=== PATIENT | female | born 1995 | race Caucasian/White ===

== ENCOUNTER 2017-02-03 08:06 | Emergency (ER) | payer BC, OTHER ==
[2017-02-03 08:11] VITALS: RESP 16
[2017-02-03] MEDS ORDERED: SODIUM CHLORIDE 0.9% 1,000 ML IV ONE (08:23)
[2017-02-03] MEDS ORDERED: METOCLOPRAMIDE 5 MG/ML 2 ML VIAL IVP STA (08:23)
--- NOTE | 2017-02-03 08:34 | ED ---
Nausea/Vomiting/Diarrhea HPI - General Chief complaint: Nausea/Vomiting/Diarrhea Stated complaint: dehydrated, Time Seen by Provider: 02/03/17 08:12 Source: patient, RN notes reviewed Mode of arrival: ambulatory Limitations: no limitations - History of Present Illness Initial comments: Patient is a 21-year-old female, , presents to the emergency room for evaluation and nausea and vomiting. Patient states she is about 14 weeks . Patient states she follows up with Dr. Gruber. Patient states she has a confirmed IUP by ultrasound. Patient states she's been having terrible morning sickness since . Patient states she was at work today and continued to vomit. Patient states she still very nauseous. Patient states she thought she should be evaluated here. Patient denies abdominal pain. Patient denies vaginal bleeding. Patient has pain or burning during urination, trouble urinating or blood in urine. Patient denies flank pain. Patient denies fevers or chills. Patient denies chest pain or shortness of breath. Patient denies headache. Patient states she feels dizzy from constantly vomiting. - Related Data Home Medications Medication Instructions Recorded Confirmed FLUoxetine HCL [Fluoxetine HCl] 20 mg PO DAILY 02/06/15 02/11/15 Allergies Allergy/AdvReac Type Severity Reaction Status Date / Time sulfamethoxazole Allergy Unknown Verified 02/03/17 08:11 [From Bactrim] trimethoprim [From Bactrim] Allergy Unknown Verified 02/03/17 08:11 Review of Systems ROS Statement: Those systems with pertinent positive or pertinent negative responses have been documented in the HPI. ROS Other: All systems not noted in ROS Statement are negative. Past Medical History Past Medical History: Asthma Additional Past Medical History / Comment(s): low blood pressure History of Any Multi-Drug Resistant Organisms: MRSA Date of last positivie culture/infection: 2010 MDRO Source:: at waist line Past Surgical History: Ear Surgery Past Psychological History: Anxiety, Depression Smoking Status: Never smoker Past Alcohol Use History: None Reported Past Drug Use History: None Reported General Exam - General Exam Comments Initial Comments: Sitting in exam room, no acute distress. Limitations: no limitations General appearance: alert, in no apparent distress Head exam: Present: atraumatic, normocephalic, normal inspection Eye exam: Present: normal appearance ENT exam: Present: normal exam Neck exam: Present: normal inspection Respiratory exam: Present: normal lung sounds bilaterally. Absent: respiratory distress Cardiovascular Exam: Present: regular rate, normal rhythm, normal heart sounds GI/Abdominal exam: Present: soft, normal bowel sounds. Absent: distended, tenderness, guarding, rebound, rigid Extremities exam: Present: normal inspection Back exam: Present: normal inspection Neurological exam: Present: alert, oriented X3, CN II-XII intact, normal gait Psychiatric exam: Present: normal affect, normal mood Skin exam: Present: warm, dry, intact, normal color. Absent: rash Course Vital Signs 02/03/17 08:07 Temperature 97.3 F L Pulse Rate 97 Respiratory 16 Rate Blood Pressure 114/65 O2 Sat by Pulse 98 Oximetry Medical Decision Making - Medical Decision Making Patient's 21-year-old female, complaining of vomiting. Patient given fluids and Reglan states she's feeling better and would like to be discharged home. Return parameters discussed. Case discussed Dr. Gonzales. - Lab Data Result diagrams: 02/03/17 08:40 02/03/17 08:40 Lab Results 02/03/17 02/03/17 02/03/17 Range/Units 08:15 08:40 08:40 WBC 8.7 (3.8-10.6) k/uL RBC 4.24 (3.80-5.40) m/uL Hgb 12.9 (11.4-16.0) gm/dL Hct 36.3 (34.0-46.0) % MCV 85.6 (80.0-100.0) fL MCH 30.3 (25.0-35.0) pg MCHC 35.5 (31.0-37.0) g/dL RDW 13.1 (11.5-15.5) % Plt Count 217 (150-450) k/uL Neutrophils % 84 % Lymphocytes % 10 % Monocytes % 4 % Eosinophils % 1 % Basophils % 1 % Neutrophils # 7.4 (1.3-7.7) k/uL Lymphocytes # 0.9 L (1.0-4.8) k/uL Monocytes # 0.3 (0-1.0) k/uL Eosinophils # 0.1 (0-0.7) k/uL Basophils # 0.1 (0-0.2) k/uL Sodium 139 (137-145) mmol/L Potassium 3.9 (3.5-5.1) mmol/L Chloride 105 (98-107) mmol/L Carbon Dioxide 25 (22-30) mmol/L Anion Gap 9 mmol/L BUN 5 L (7-17) mg/dL Creatinine 0.59 (0.52-1.04) mg/dL Est GFR (MDRD) Af Amer >60 (>60 ml/min/1.73 sqM) Est GFR (MDRD) Non-Af >60 (>60 ml/min/1.73 sqM) Glucose 80 (74-99) mg/dL Calcium 9.4 (8.4-10.2) mg/dL Magnesium 1.7 (1.6-2.3) mg/dL Total Bilirubin 0.5 (0.2-1.3) mg/dL AST 37 H (14-36) U/L ALT 45 (9-52) U/L Alkaline Phosphatase 55 (38-126) U/L Total Protein 7.1 (6.3-8.2) g/dL Albumin 4.1 (3.5-5.0) g/dL Amylase 38 (30-110) U/L Lipase 46 (23-300) U/L Urine Color Yellow Urine Appearance Cloudy H (Clear) Urine pH 5.5 (5.0-8.0) Ur Specific Chapman 1.022 (1.001-1.035) Urine Protein Trace H (Negative) Urine Glucose (UA) Negative (Negative) Urine Ketones Negative (Negative) Urine Blood Negative (Negative) Urine Nitrite Negative (Negative) Urine Bilirubin Negative (Negative) Urine Urobilinogen 2.0 (<2.0) mg/dL Ur Leukocyte Esterase Trace H (Negative) Urine RBC 1 (0-5) /hpf Urine WBC 4 (0-5) /hpf Ur Squamous Epith Cells 4 (0-4) /hpf Urine Bacteria Moderate H (None) /hpf Urine Mucus Few H (None) /hpf Disposition Clinical Impression: Hyperemesis gravidarum Disposition: HOME SELF-CARE Condition: Good Instructions: Hyperemesis Gravidarum (ED) Additional Instructions: Please follow up with [facility] or primary care provider in 1-2 days. If any new symptom arises or symptoms worsen, return to ER as soon as possible. Referrals: Malika Vidal MD [Primary Care Provider] - 1-2 days Cyndie Gruber MD [STAFF PHYSICIAN] - 1-2 days Time of Disposition: 09:42
[2017-02-03 08:41] LABS: Appearance,Urine Cloudy (Clear); Bacteria,Urine Moderate /hpf; Bilirubin,Urine Negative (Negative); Glucose,Urine (UA) Negative (Negative); Ketones,Urine Negative (Negative); Leukocyte Esterase,Urine Trace (Negative); Mucus,Urine Few /hpf; Nitrite,Urine Negative (Negative); PH, Urine 5.5 (5.0-8.0); Particle Count 12465; Protein,Urine Trace (Negative); RBC,Urine 1 /hpf (0-5); Specific Gravity,Urine 1.022 (1.001-1.035); Squamous Epithelial Cell,Urine 4 /hpf (0-4); UA Billing (MACRO vs. MICRO) MICRO; WBC,Urine 4 /hpf (0-5)
[2017-02-03 08:58] LABS: Basophils # (A) 0.1 k/uL (0-0.2); Basophils % (A) 1 %; CH 30.4; CHCM 35.6; Eosinophils # (A) 0.1 k/uL (0-0.7); Eosinophils % (A) 1 %; HCT 36.3 % (34.0-46.0); HDW 2.55; HGB 12.9 gm/dL (11.4-16.0); Luc % (Auto) 1; Lymphocytes # (A) 0.9 k/uL (1.0-4.8); Lymphocytes % (A) 10 %; MCH 30.3 pg (25.0-35.0); MCHC 35.5 g/dL (31.0-37.0); MCV 85.6 fL (80.0-100.0); Mean Platelet Volume 8.1; Monocytes # (A) 0.3 k/uL (0-1.0); Monocytes % (A) 4 %; Neutrophils # (A) 7.4 k/uL (1.3-7.7); Neutrophils % (A) 84 %; RBC 4.24 m/uL (3.80-5.40); RDW 13.1 % (11.5-15.5); WBC 8.7 k/uL (3.8-10.6); WBC (Perox) 8.25
[2017-02-03 09:04] LABS: ALT 45 U/L (9-52); AST 37 U/L (14-36); Alkaline Phosphatase 55 U/L (38-126); Amylase 38 U/L (30-110); Anion Gap 9 mmol/L; Blood Urea Nitrogen 5 mg/dL (7-17); Calcium 9.4 mg/dL (8.4-10.2); Carbon Dioxide 25 mmol/L (22-30); Chloride 105 mmol/L (98-107); Glucose 80 mg/dL (74-99); Magnesium 1.7 mg/dL (1.6-2.3); Non-African American GFR(MDRD) >60 (>60 ml/min/1.73 sqM); Potassium 3.9 mmol/L (3.5-5.1); Sodium 139 mmol/L (137-145); Total Bilirubin 0.5 mg/dL (0.2-1.3); Total Protein 7.1 g/dL (6.3-8.2)
[2017-02-03 09:53] VITALS: BP 118/67; PULSE 83; TEMP 97.1
== END 2017-02-03 09:55 | disposition home or self-care (01) ==
LOC: EC 08:06
DX: O21.0 Mild hyperemesis gravidarum (principal); Z3A.14 14 weeks gestation of pregnancy; F32.9 Major depressive disorder, single episode, unspecified; Z88.1 Allergy status to other antibiotic agents; Z88.2 Allergy status to sulfonamides; Z86.14 Personal history of Methicillin resistant Staphylococcus aureus infection; Z79.899 Other long term (current) drug therapy
CPT/HCPCS: 96361 ×2; 96374 ×2; 99284 ×2; 36415; 80053; 82150; 83690; 83735; 85025; 81001; J2765

== ENCOUNTER 2017-07-02 13:45 | Outpatient (CLI) | payer OTHER ==
[2017-07-02] MEDS ORDERED: LACTATED RINGERS 1,000 ML IV ONE (14:45)
[2017-07-02 14:53] VITALS: BP 132/79; PULSE 81; RESP 16; TEMP 98.5
[2017-07-02] MEDS ORDERED: BETAMET ACET-BETAMETH SOD PHOS 6 MG/ML VIAL IM SCH (16:00)
--- NOTE | 2017-08-06 13:51 | P.MSEPDOC ---
Presenting Problems - Arrival Data Date of Arrival on Unit: 07/02/17 Time of Arrival on Unit: 13:50 Mode of Transport: Ambulatory - Complaint OB-Reason for Admission/Chief Complaint: Other Comment: pt arrived c/o constant abd discomfort and c/o mucus discharge when she wipes pt denies any bleeding or leaking of fluid Medical History - Information : 2 Para: 0 Term: 0 : 0 Abortions: Spontaneous or Elective: 1 Number of Living Children: 0 - Gestational Age Gestational Age by KASANDRA (wks/days): 34 Weeks and 2 Days - History Complications: Multiple Review of Systems - Review of Systems Constitutional: No problems Breast: No problems ENT: No problems Cardiovascular: No problems Respiratory: No problems Gastrointestinal: No problems Genitourinary: No problems Musculoskeletal: No problems Neurological: No problems Skin: No problems Vital Signs - Temperature Temperature: 98.5 F Temperature Source: Oral - Pulse Right Brachial Pulse Rate: 81 Pulse Assessment Method: Automatic Cuff - Respirations Respiratory Rate: 16 Oxygen Delivery Method: Room Air - Blood Pressure Right Arm Blood Pressure: 132/79 Blood Pressure Mean: 96 Blood Pressure Source: Automatic Cuff Medical Screen Scoring (Pre) - Cervical Exam Dilation: 0 cm = 0 Membranes: Intact - Uterine Contractions Frequency: > 5 minutes apart = 1 Duration: > 40 seconds = 2 Intensity: N/A - Maternal Vital Signs Maternal Temperature: N/A Maternal Blood Pressure: N/A Signs of Preeclampsia: N/A Maternal Respirations: N/A - Pain Assessment Pain Location and Character: Abdomen Pain Scale Used: Numeric (1 - 10) Pain Intensity: 5 Pain Management Goal: 2 Pain Description: Sharp Pain Frequency: Constant Pain Duration: 30 Pain Duration Units: Minutes Pain Behavior: Vocalization Pain Aggravating Factors: Walking Non-Pharmacological Interventions: Relaxation Technique - Maternal Trauma Maternal Trauma: N/A - Assessment Baseline FHR: 150/140 Heart Rate - NICHD Category: Category I (Normal) = 0 NST: Reactive Position: N/A Station: N/A - Total Score Total Score (Pre): 3 - Level of Risk Level of Risk: Low (0-5) Physician Notification (Pre) - Physician Notified Physician Notified Date: 07/02/17 Physician Notified Time: 14:30 Spoke With: dr lemus Medical Screen Scoring (Post) - Cervical Exam Dilation: 0 cm = 0 Membranes: Intact - Uterine Contractions Frequency: > 5 minutes apart = 1 Duration: N/A Intensity: Contraction palpated strong = 1 - Maternal Vital Signs Maternal Temperature: N/A Signs of Preeclampsia: N/A Maternal Respirations: N/A - Pain Assessment Pain Location and Character: Abdomen Pain Scale Used: Numeric (1 - 10) Pain Intensity: 3 Pain Management Goal: 2 Pain Description: Sharp Pain Radiation Location: n/a Pain Duration: 45 Pain Duration Units: Minutes Pain Behavior: Vocalization - Maternal Trauma Maternal Trauma: N/A - Assessment Heart Rate: 140/150 Heart Rate - NICHD Category: Category I (Normal) = 0 NST: Reactive Position: N/A Station: N/A - Total Score Total Score (Post): 2 - Post Treatment Level of Risk Post Treatment Level of Risk: Low (0-5) Physician Notification (Post) - Physician Notified Physician Notified Date: 07/02/17 Physician Notified Time: 15:40 Spoke With: dr cook New Order Received: Yes - Notification Comment Comment: celestone 12 mg im now and have pt return in 24 hr for second dose. fibronectin sent per dr cook with a positive results. pt hydrated with 1000cc of iv fluid no change in cervix noted contractions q 10-12 minutes apart mild some pt not even feeling Disposition - Disposition OB Disposition: Discharge to home Discharge Date: 07/02/17 Discharge Time: 16:15 I agree with the RN Medical Screening Exam: Yes Risk & Benefit of care provided described in d/c instruction: Yes Diagnosis: FALSE LABOR BEFORE 37 COMPLETED WEEKS OF GEST, THIRD TRI
== END 2017-07-02 16:15 | disposition home or self-care (01) ==
LOC: FBPOP 13:45
PROVIDERS: ATTEND Obstetrics & Gynecology
DX: O47.03 False labor before 37 completed weeks of gestation, third trimester (principal); Z3A.34 34 weeks gestation of pregnancy
CPT/HCPCS: 59025; 99214; 96360; 96372; 82731; J0702

== ENCOUNTER 2017-07-30 02:34 | Emergency (ER) | payer OTHER ==
[2017-07-30] MEDS ORDERED: SODIUM CHLORIDE 0.9% 500 ML IV STA (02:52)
[2017-07-30 03:25] LABS: Basophils % (A) 0 %; Eosinophils # (A) 0.3 k/uL (0-0.7); Eosinophils % (A) 4 %; HCT 29.6 % (34.0-46.0); Hypochromasia Marked; Lymphocytes # (A) 1.8 k/uL (1.0-4.8); Lymphocytes % (A) 25 %; MCH 23.5 pg (25.0-35.0); MCHC 30.3 g/dL (31.0-37.0); MCV 77.3 fL (80.0-100.0); Mean Platelet Volume 7.4; Monocytes # (A) 0.3 k/uL (0-1.0); Monocytes % (A) 4 %; Neutrophils # (A) 4.8 k/uL (1.3-7.7); Neutrophils % (A) 65 %; Platelet Count 365 k/uL (150-450); Poikilocytosis Slight; RBC 3.82 m/uL (3.80-5.40); WBC 7.4 k/uL (3.8-10.6)
[2017-07-30 03:28] LABS: Appearance,Urine Clear (Clear); Bilirubin,Urine Negative (Negative); Blood,Urine Small (Negative); Color,Urine Yellow; Glucose,Urine (UA) Negative (Negative); Ketones,Urine Negative (Negative); Leukocyte Esterase,Urine Moderate (Negative); Mucus,Urine Occasional /hpf; Nitrite,Urine Negative (Negative); PH, Urine 5.5 (5.0-8.0); Protein,Urine Trace (Negative); RBC,Urine 10 /hpf (0-5); Specific Gravity,Urine 1.026 (1.001-1.035); Urobilinogen,Urine <2.0 mg/dL (<2.0); WBC,Urine 29 /hpf (0-5)
[2017-07-30 03:33] LABS: ALT 51 U/L (9-52); AST 66 U/L (14-36); Albumin 4.1 g/dL (3.5-5.0); Alkaline Phosphatase 110 U/L (38-126); Anion Gap 12 mmol/L; Blood Urea Nitrogen 16 mg/dL (7-17); C Reactive Protein 9.3 mg/L (<10.0); Calcium 9.9 mg/dL (8.4-10.2); Carbon Dioxide 24 mmol/L (22-30); Chloride 107 mmol/L (98-107); Glucose 104 mg/dL (74-99); Lipase 111 U/L (23-300); Potassium 3.9 mmol/L (3.5-5.1); Sodium 143 mmol/L (137-145); Total Bilirubin 0.3 mg/dL (0.2-1.3); Total Protein 6.8 g/dL (6.3-8.2)
[2017-07-30] MEDS ORDERED: cefTRIAXone IN SWFI 2,000 MG/20 ML SYRINGE IVP STA (03:51)
--- NOTE | 2017-07-30 03:51 | ED ---
Back Pain HPI - General Chief Complaint: Back Pain/Injury Stated Complaint: back pain post Time Seen by Provider: 07/30/17 02:45 Source: patient, RN notes reviewed Mode of arrival: ambulatory Limitations: no limitations - History of Present Illness Initial Comments: This a 21-year-old female presents emergency Department chief complaint of back pain. She states she's been having some discomfort but worsen tonight. Patient does have some dysuria. Denies any nausea vomiting diarrhea constipation. Patient states he is status post . Patient denies any known fever but states that she's had on cold flashes. Patient states she feels weak rundown today. Patient states she is having low blood count with a shortly after her . She states she called her [employer] whom recommended her come emergency department - Related Data Home Medications Medication Instructions Recorded Confirmed Pnv No.95/Ferrous Fum/Folic AC 1 tab PO DAILY 07/02/17 07/06/17 [ Multivitamin Tablet] Previous Rx's Medication Instructions Recorded Cephalexin [Keflex] 500 mg PO Q6HR #28 cap 07/30/17 Allergies Allergy/AdvReac Type Severity Reaction Status Date / Time sulfamethoxazole Allergy Rash/Hives Verified 07/30/17 02:42 [From Bactrim] trimethoprim [From Bactrim] Allergy Rash/Hives Verified 07/30/17 02:42 Review of Systems ROS Statement: Those systems with pertinent positive or pertinent negative responses have been documented in the HPI. ROS Other: All systems not noted in ROS Statement are negative. Past Medical History Past Medical History: Asthma Additional Past Medical History / Comment(s): low blood pressure History of Any Multi-Drug Resistant Organisms: MRSA Date of last positivie culture/infection: 2010 MDRO Source:: at waist line Past Surgical History: Ear Surgery Past Anesthesia/Blood Transfusion Reactions: No Reported Reaction Past Psychological History: Anxiety, Depression, Panic Disorder Smoking Status: Never smoker Past Alcohol Use History: None Reported Past Drug Use History: None Reported - Past Family History Mother Additional Family Medical History / Comment(s): alcohol addiction General Exam Limitations: no limitations General appearance: alert, in no apparent distress Head exam: Present: atraumatic, normocephalic, normal inspection Eye exam: Present: normal appearance, PERRL, EOMI. Absent: scleral icterus, conjunctival injection, periorbital swelling Respiratory exam: Present: normal lung sounds bilaterally. Absent: respiratory distress, wheezes, rales, rhonchi, stridor Cardiovascular Exam: Present: regular rate, normal rhythm, normal heart sounds. Absent: systolic murmur, diastolic murmur, rubs, gallop, clicks GI/Abdominal exam: Present: soft, normal bowel sounds. Absent: distended, tenderness, guarding, rebound, rigid Back exam: Present: tenderness, paraspinal tenderness. Absent: CVA tenderness ( R), CVA tenderness (L), vertebral tenderness Skin exam: Present: warm, dry, intact, normal color. Absent: rash Course Vital Signs 07/30/17 02:37 Temperature 98.1 F Pulse Rate 95 Respiratory 16 Rate Blood Pressure 111/54 O2 Sat by Pulse 100 Oximetry Medical Decision Making - Medical Decision Making 21-year-old female presented emergency department for back pain. Patient's on have urinary tract infection. Patient will be given Rocephin emergency Department discharge on Keflex that she is breast-feeding. Patient will take Tylenol Motrin for the pain. Patient understands lab work and return parameters. - Lab Data Result diagrams: 07/30/17 03:08 07/30/17 03:08 Lab Results 07/30/17 07/30/17 07/30/17 Range/Units 03:08 03:08 03:08 WBC 7.4 (3.8-10.6) k/uL RBC 3.82 (3.80-5.40) m/uL Hgb 9.0 L D (11.4-16.0) gm/dL Hct 29.6 L (34.0-46.0) % MCV 77.3 L (80.0-100.0) fL MCH 23.5 L (25.0-35.0) pg MCHC 30.3 L (31.0-37.0) g/dL RDW 15.0 (11.5-15.5) % Plt Count 365 (150-450) k/uL Neutrophils % 65 % Lymphocytes % 25 % Monocytes % 4 % Eosinophils % 4 % Basophils % 0 % Neutrophils # 4.8 (1.3-7.7) k/uL Lymphocytes # 1.8 (1.0-4.8) k/uL Monocytes # 0.3 (0-1.0) k/uL Eosinophils # 0.3 (0-0.7) k/uL Basophils # 0.0 (0-0.2) k/uL Hypochromasia Marked Poikilocytosis Slight D-Dimer (<0.60) mg/L FEU Sodium 143 (137-145) mmol/L Potassium 3.9 (3.5-5.1) mmol/L Chloride 107 (98-107) mmol/L Carbon Dioxide 24 (22-30) mmol/L Anion Gap 12 mmol/L BUN 16 (7-17) mg/dL Creatinine 0.90 (0.52-1.04) mg/dL Est GFR (MDRD) Af Amer >60 (>60 ml/min/1.73 sqM) Est GFR (MDRD) Non-Af >60 (>60 ml/min/1.73 sqM) Glucose 104 H (74-99) mg/dL Plasma Lactic Acid Alcon 0.7 (0.7-2.0) mmol/L Calcium 9.9 (8.4-10.2) mg/dL Total Bilirubin 0.3 (0.2-1.3) mg/dL AST 66 H (14-36) U/L ALT 51 (9-52) U/L Alkaline Phosphatase 110 (38-126) U/L C-Reactive Protein 9.3 (<10.0) mg/L Total Protein 6.8 (6.3-8.2) g/dL Albumin 4.1 (3.5-5.0) g/dL Lipase 111 (23-300) U/L Urine Color Urine Appearance (Clear) Urine pH (5.0-8.0) Ur Specific [place] (1.001-1.035) Urine Protein (Negative) Urine Glucose (UA) (Negative) Urine Ketones (Negative) Urine Blood (Negative) Urine Nitrite (Negative) Urine Bilirubin (Negative) Urine Urobilinogen (<2.0) mg/dL Ur Leukocyte Esterase (Negative) Urine RBC (0-5) /hpf Urine WBC (0-5) /hpf Urine Mucus (None) /hpf 07/30/17 07/30/17 Range/Units 03:08 03:08 WBC (3.8-10.6) k/uL RBC (3.80-5.40) m/uL Hgb (11.4-16.0) gm/dL Hct (34.0-46.0) % MCV (80.0-100.0) fL MCH (25.0-35.0) pg MCHC (31.0-37.0) g/dL RDW (11.5-15.5) % Plt Count (150-450) k/uL Neutrophils % % Lymphocytes % % Monocytes % % Eosinophils % % Basophils % % Neutrophils # (1.3-7.7) k/uL Lymphocytes # (1.0-4.8) k/uL Monocytes # (0-1.0) k/uL Eosinophils # (0-0.7) k/uL Basophils # (0-0.2) k/uL Hypochromasia Poikilocytosis D-Dimer 0.49 (<0.60) mg/L FEU Sodium (137-145) mmol/L Potassium (3.5-5.1) mmol/L Chloride (98-107) mmol/L Carbon Dioxide (22-30) mmol/L Anion Gap mmol/L BUN (7-17) mg/dL Creatinine (0.52-1.04) mg/dL Est GFR (MDRD) Af Amer (>60 ml/min/1.73 sqM) Est GFR (MDRD) Non-Af (>60 ml/min/1.73 sqM) Glucose (74-99) mg/dL Plasma Lactic Acid Alcon (0.7-2.0) mmol/L Calcium (8.4-10.2) mg/dL Total Bilirubin (0.2-1.3) mg/dL AST (14-36) U/L ALT (9-52) U/L Alkaline Phosphatase (38-126) U/L C-Reactive Protein (<10.0) mg/L Total Protein (6.3-8.2) g/dL Albumin (3.5-5.0) g/dL Lipase (23-300) U/L Urine Color Yellow Urine Appearance Clear (Clear) Urine pH 5.5 (5.0-8.0) Ur Specific [place] 1.026 (1.001-1.035) Urine Protein Trace H (Negative) Urine Glucose (UA) Negative (Negative) Urine Ketones Negative (Negative) Urine Blood Small H (Negative) Urine Nitrite Negative (Negative) Urine Bilirubin Negative (Negative) Urine Urobilinogen <2.0 (<2.0) mg/dL Ur Leukocyte Esterase Moderate H (Negative) Urine RBC 10 H (0-5) /hpf Urine WBC 29 H (0-5) /hpf Urine Mucus Occasional H (None) /hpf Disposition Clinical Impression: UTI (urinary tract infection) Disposition: HOME SELF-CARE Condition: Stable Instructions: Urinary Tract Infection in Women (ED) Additional Instructions: Please return to the Emergency Department if symptoms worsen or any other concerns. Prescriptions: Cephalexin [Keflex] 500 mg PO Q6HR #28 cap Referrals: Malika Vidal MD [Primary Care Provider] - 1-2 days Time of Disposition: 03:51
[2017-07-30 04:25] VITALS: BP 106/53; PULSE 86; RESP 18; TEMP 98.4
== END 2017-07-30 04:29 | disposition home or self-care (01) ==
LOC: EC 02:34
DX: N39.0 Urinary tract infection, site not specified (principal); M54.9 Dorsalgia, unspecified; Z86.14 Personal history of Methicillin resistant Staphylococcus aureus infection; Z88.2 Allergy status to sulfonamides; Z98.890 Other specified postprocedural states
CPT/HCPCS: 36415; 85379; 80053; 83605; 83690; 85025; 86140; 81001; 87040; 87086; 99283; 96374; J0696

== ENCOUNTER → 2019-04-22 | Outpatient (CLI) | payer OTHER ==
--- NOTE | 2019-04-22 17:25 | XR ---
PROCEDURE: XR shoulder complete LT - 3V DATE AND TIME: 04/22/2019 5:15 PM CLINICAL INDICATION: PHH; S43.402A pain after lifting injury 2 months ago TECHNIQUE: Department protocol COMPARISON: None FINDINGS: There is no fracture or malalignment. The soft tissues are unremarkable. IMPRESSION: NO ACUTE PROCESS.
== END | disposition home or self-care (01) ==
LOC: RADXRMAIN 16:59
PROVIDERS: ATTEND Emergency Medicine
DX: S43.402A Unspecified sprain of left shoulder joint, initial encounter (principal)

== ENCOUNTER → 2019-08-19 | Outpatient (CLI) | payer MEDICAID ==
[2019-08-19 10:44] LABS: Basophils % (A) 1 %; Eosinophils # (A) 0.1 k/uL (0-0.7); Eosinophils % (A) 3 %; HCT 39.9 % (34.0-46.0); HGB 12.9 gm/dL (11.4-16.0); Lymphocytes # (A) 1.2 k/uL (1.0-4.8); Lymphocytes % (A) 24 %; MCH 28.6 pg (25.0-35.0); MCHC 32.4 g/dL (31.0-37.0); MCV 88.2 fL (80.0-100.0); Mean Platelet Volume 8.7; Monocytes # (A) 0.3 k/uL (0-1.0); Monocytes % (A) 6 %; Neutrophils # (A) 3.3 k/uL (1.3-7.7); Neutrophils % (A) 65 %; Platelet Count 213 k/uL (150-450); RBC 4.52 m/uL (3.80-5.40); RDW 12.6 % (11.5-15.5); WBC 5.1 k/uL (3.8-10.6)
[2019-08-19 18:18] LABS: ALT 25 U/L (8-44); AST 26 U/L (13-35); African American GFR (CKD) 120.4 (60.0-200.0); Albumin/Globulin Ratio 2.09 (1.60-3.17); Alkaline Phosphatase 49 U/L (41-126); Calcium 9.5 mg/dL (8.7-10.3); Carbon Dioxide 25.7 mmol/L (21.6-31.8); Chloride 108 mmol/L (96-109); Cholesterol 73 mg/dL (0-200); Globulin 2.2 g/dL (1.6-3.3); Glucose 97 mg/dL (70-110); Non-African American GFR(CKD) 103.9 (60.0-200.0); Potassium 4.8 mmol/L (3.5-5.5); Sodium 141 mmol/L (135-145); Total Bilirubin 0.5 mg/dL (0.2-1.2); Total Protein 6.8 g/dL (6.2-8.2); Triglycerides <50.0 mg/dL (0.0-149.0)
== END | disposition home or self-care (01) ==
LOC: LABWHC1 10:00
PROVIDERS: ATTEND Family Medicine
DX: Z00.00 Encounter for general adult medical examination without abnormal findings (principal)
CPT/HCPCS: 36415; 80053; 80061; 82306; 85025

== ENCOUNTER 2021-03-09 15:45 | Inpatient (IN) | payer MEDICAID ==
[2021-03-09] MEDS ORDERED: SODIUM CHLORIDE 0.9% 1,000 ML IV STA (16:53)
[2021-03-09] MEDS ORDERED: KETOROLAC 15 MG/ML 1 ML VIAL IVP STA (16:53)
[2021-03-09] MEDS ORDERED: ONDANSETRON 4 MG/2 ML VIAL IVP STA (16:53)
--- NOTE | 2021-03-09 17:08 | ED ---
Abdominal Pain HPI - General Chief Complaint: Abdominal Pain Stated Complaint: abd pain Time Seen by Provider: 03/09/21 16:39 Source: patient Mode of arrival: ambulatory Limitations: no limitations - History of Present Illness Initial Comments: Patient is a 25-year-old female presenting to the emergency Department with complaints of epigastric pain for the past week. She states the last few days it has been worsening. She describes it as all epigastric, sometimes radiates off to the left and right upper abdomen. She does admit to some nausea when the pain is severe, no vomiting. She's been having regular bowel movements. She denies any fevers or chills, no chest pains or shortness of breath. She denies any dysuria or frequency. She states she went to [facility] yesterday, they did check her urine, no evidence of a UTI. They gave her some Zofran and Bentyl. These medications are not working. The pain was very severe today she decided to come in. Admits history of , no other abdominal surgeries. She has no further complaints at this time. Her vital signs are stable upon arrival. - Related Data Home Medications Medication Instructions Recorded Confirmed Pnv No.95/Ferrous Fum/Folic AC 1 tab PO DAILY 07/02/17 07/06/17 [ Multivitamin Tablet] Previous Rx's Medication Instructions Recorded Cephalexin [Keflex] 500 mg PO Q6HR #28 cap 07/30/17 Allergies Allergy/AdvReac Type Severity Reaction Status Date / Time sulfamethoxazole Allergy Rash/Hives Verified 03/09/21 16:16 [From Bactrim] trimethoprim [From Bactrim] Allergy Rash/Hives Verified 03/09/21 16:16 Review of Systems ROS Statement: Those systems with pertinent positive or pertinent negative responses have been documented in the HPI. ROS Other: All systems not noted in ROS Statement are negative. Past Medical History Past Medical History: Asthma Additional Past Medical History / Comment(s): low blood pressure History of Any Multi-Drug Resistant Organisms: MRSA Date of last positivie culture/infection: 2010 MDRO Source:: at waist line Past Surgical History: Ear Surgery Past Anesthesia/Blood Transfusion Reactions: No Reported Reaction Past Psychological History: Anxiety, Depression, Panic Disorder Smoking Status: Never smoker Past Alcohol Use History: Occasional Past Drug Use History: Marijuana - Past Family History Mother Additional Family Medical History / Comment(s): alcohol addiction General Exam - General Exam Comments Initial Comments: GENERAL: Patient is well-developed and well-nourished. Patient is nontoxic and in no acute distress. HEAD: Atraumatic, normocephalic. EYES: Pupils equal round and reactive to light, extraocular movements intact, sclera anicteric, conjunctiva are normal. Eyelids were unremarkable. ENT: TMs normal, nares patent, oropharynx clear without exudates. Moist mucous membranes. NECK: Normal range of motion, supple without lymphadenopathy or JVD. LUNGS: Unlabored respirations. Breath sounds clear to auscultation bilaterally and equal. No wheezes rales or rhonchi. HEART: Regular rate and rhythm without murmurs, rubs or gallops. ABDOMEN: Soft, epigastric pain on palpation, normoactive bowel sounds. No guarding, no rebound. No masses appreciated. : Deferred MUSCULOSKELETAL: Normal extremities with adequate strength and normal range of motion, no pitting or edema. No clubbing or cyanosis. NEUROLOGICAL: Patient is alert and oriented x 3. SKIN: Warm, Dry, normal turgor, no rashes or lesions noted. Limitations: no limitations Course Vital Signs 03/09/21 16:12 Temperature 98.0 F Pulse Rate 93 Respiratory 17 Rate Blood Pressure 134/80 O2 Sat by Pulse 99 Oximetry Medical Decision Making - Medical Decision Making Patient is a 25-year-old female here with epigastric pain over the past week. More severe over the past 2 days. She was seen at urgent care yesterday given a prescription for Zofran and Bentyl without relief. History of , no other abdominal surgeries. No fevers. Her vitals are stable. Labs are showing a normal white count, lactic acid is normal at 0.9, she does have transaminitis with total bilirubin at 1.5, AST is 525, ALT of 784, alk phos 200. Lipase is normal 91, urinalysis shows 1+ bilirubin. HCG is negative. Ultrasound of the gallbladder shows numerous gallstones, no dilated ducts, no focal liver defect. Patient denies alcohol use, denies Tylenol use. Patient will be admitted for cholelithiasis, transaminitis. Patient except by Dr. Ldebetter, with surgery on consult. She is agreeable to this. Case discussed with Dr. Moncada. - Lab Data Result diagrams: 03/09/21 17:00 03/09/21 17:00 Lab Results 03/09/21 03/09/21 03/09/21 Range/Units 17:00 17:00 17:00 WBC 6.0 (3.8-10.6) k/uL RBC 4.61 (3.80-5.40) m/uL Hgb 14.0 (11.4-16.0) gm/dL Hct 41.4 (34.0-46.0) % MCV 89.6 (80.0-100.0) fL MCH 30.3 (25.0-35.0) pg MCHC 33.8 (31.0-37.0) g/dL RDW 13.6 (11.5-15.5) % Plt Count 271 (150-450) k/uL MPV 8.8 Neutrophils % 67 % Lymphocytes % 20 % Monocytes % 6 % Eosinophils % 4 % Basophils % 1 % Neutrophils # 4.0 (1.3-7.7) k/uL Lymphocytes # 1.2 (1.0-4.8) k/uL Monocytes # 0.3 (0-1.0) k/uL Eosinophils # 0.2 (0-0.7) k/uL Basophils # 0.1 (0-0.2) k/uL PT 11.0 (9.0-12.0) sec INR 1.0 (<1.2) APTT 23.3 (22.0-30.0) sec Sodium (137-145) mmol/L Potassium (3.5-5.1) mmol/L Chloride (98-107) mmol/L Carbon Dioxide (22-30) mmol/L Anion Gap mmol/L BUN (7-17) mg/dL Creatinine (0.52-1.04) mg/dL Est GFR (CKD-EPI)AfAm (>60 ml/min/1.73 sqM) Est GFR (CKD-EPI)NonAf (>60 ml/min/1.73 sqM) Glucose (74-99) mg/dL Plasma Lactic Acid Alcon (0.7-2.0) mmol/L Calcium (8.4-10.2) mg/dL Total Bilirubin (0.2-1.3) mg/dL AST (14-36) U/L ALT (4-34) U/L Alkaline Phosphatase (38-126) U/L Total Protein (6.3-8.2) g/dL Albumin (3.5-5.0) g/dL Amylase (30-110) U/L Lipase (23-300) U/L Urine Color Yellow Urine Appearance Cloudy H (Clear) Urine pH 8.0 (5.0-8.0) Ur Specific [place] 1.020 (1.001-1.035) Urine Protein Trace H (Negative) Urine Glucose (UA) Negative (Negative) Urine Ketones Negative (Negative) Urine Blood Negative (Negative) Urine Nitrite Negative (Negative) Urine Bilirubin 1+ H (Negative) Urine Urobilinogen 2.0 (<2.0) mg/dL Ur Leukocyte Esterase Trace H (Negative) Ur Squamous Epith Cells 11 H (0-4) /hpf Urine Bacteria Many H (None) /hpf Urine Yeast (Budding) Many H (None) /hpf Urine HCG, Qual (Not Detectd) 03/09/21 03/09/21 03/09/21 Range/Units 17:00 17:00 17:00 WBC (3.8-10.6) k/uL RBC (3.80-5.40) m/uL Hgb (11.4-16.0) gm/dL Hct (34.0-46.0) % MCV (80.0-100.0) fL MCH (25.0-35.0) pg MCHC (31.0-37.0) g/dL RDW (11.5-15.5) % Plt Count (150-450) k/uL MPV Neutrophils % % Lymphocytes % % Monocytes % % Eosinophils % % Basophils % % Neutrophils # (1.3-7.7) k/uL Lymphocytes # (1.0-4.8) k/uL Monocytes # (0-1.0) k/uL Eosinophils # (0-0.7) k/uL Basophils # (0-0.2) k/uL PT (9.0-12.0) sec INR (<1.2) APTT (22.0-30.0) sec Sodium 138 (137-145) mmol/L Potassium 4.0 (3.5-5.1) mmol/L Chloride 104 (98-107) mmol/L Carbon Dioxide 27 (22-30) mmol/L Anion Gap 7 mmol/L BUN 8 (7-17) mg/dL Creatinine 0.70 (0.52-1.04) mg/dL Est GFR (CKD-EPI)AfAm >90 (>60 ml/min/1.73 sqM) Est GFR (CKD-EPI)NonAf >90 (>60 ml/min/1.73 sqM) Glucose 100 H (74-99) mg/dL Plasma Lactic Acid Alcon 0.9 (0.7-2.0) mmol/L Calcium 9.5 (8.4-10.2) mg/dL Total Bilirubin 1.5 H (0.2-1.3) mg/dL AST 525 H (14-36) U/L ALT 784 H (4-34) U/L Alkaline Phosphatase 200 H (38-126) U/L Total Protein 7.6 (6.3-8.2) g/dL Albumin 4.7 (3.5-5.0) g/dL Amylase 52 (30-110) U/L Lipase 91 (23-300) U/L Urine Color Urine Appearance (Clear) Urine pH (5.0-8.0) Ur Specific [place] (1.001-1.035) Urine Protein (Negative) Urine Glucose (UA) (Negative) Urine Ketones (Negative) Urine Blood (Negative) Urine Nitrite (Negative) Urine Bilirubin (Negative) Urine Urobilinogen (<2.0) mg/dL Ur Leukocyte Esterase (Negative) Ur Squamous Epith Cells (0-4) /hpf Urine Bacteria (None) /hpf Urine Yeast (Budding) (None) /hpf Urine HCG, Qual Not Detected (Not Detectd) Disposition Clinical Impression: Cholelithiasis, Transaminitis, Epigastric pain Disposition: ADMITTED IP TO THIS [facility] Condition: Stable Referrals: Yanick Laguna DO [Primary Care Provider] - 1-2 days Decision Date: 03/09/21 Decision Time: 19:15
[2021-03-09 17:20] LABS: Basophils # (A) 0.1 k/uL (0-0.2); Basophils % (A) 1 %; Eosinophils # (A) 0.2 k/uL (0-0.7); Eosinophils % (A) 4 %; HCT 41.4 % (34.0-46.0); Lymphocytes # (A) 1.2 k/uL (1.0-4.8); Lymphocytes % (A) 20 %; MCH 30.3 pg (25.0-35.0); MCHC 33.8 g/dL (31.0-37.0); MCV 89.6 fL (80.0-100.0); Mean Platelet Volume 8.8; Monocytes # (A) 0.3 k/uL (0-1.0); Monocytes % (A) 6 %; Neutrophils % (A) 67 %; Platelet Count 271 k/uL (150-450); RBC 4.61 m/uL (3.80-5.40); RDW 13.6 % (11.5-15.5)
[2021-03-09 17:23] LABS: Appearance,Urine Cloudy (Clear); Bacteria,Urine Many /hpf; Bilirubin,Urine 1+ (Negative); Blood,Urine Negative (Negative); Budding Yeast,Urine Many /hpf; Color,Urine Yellow; Glucose,Urine (UA) Negative (Negative); Ketones,Urine Negative (Negative); Leukocyte Esterase,Urine Trace (Negative); Nitrite,Urine Negative (Negative); Protein,Urine Trace (Negative); Squamous Epithelial Cell,Urine 11 /hpf (0-4)
[2021-03-09 17:36] LABS: AST 525 U/L (14-36); African American GFR (CKD) >90 (>60 ml/min/1.73 sqM); Albumin 4.7 g/dL (3.5-5.0); Alkaline Phosphatase 200 U/L (38-126); Amylase 52 U/L (30-110); Anion Gap 7 mmol/L; Blood Urea Nitrogen 8 mg/dL (7-17); Calcium 9.5 mg/dL (8.4-10.2); Carbon Dioxide 27 mmol/L (22-30); Chloride 104 mmol/L (98-107); Glucose 100 mg/dL (74-99); Lipase 91 U/L (23-300); Non-African American GFR(CKD) >90 (>60 ml/min/1.73 sqM); Sodium 138 mmol/L (137-145); Total Bilirubin 1.5 mg/dL (0.2-1.3); Total Protein 7.6 g/dL (6.3-8.2)
[2021-03-09 17:37] LABS: Partial Thromboplastin Time 23.3 sec (22.0-30.0)
[2021-03-09 17:55] LABS: ALT 784 U/L (4-34)
--- NOTE | 2021-03-09 18:32 | US ---
EXAMINATION TYPE: US gallbladder DATE OF EXAM: 03/09/2021 COMPARISON: NONE CLINICAL HISTORY: epigastric pain. EC patient with epigastric pain x 1 week; nausea EXAM MEASUREMENTS: Liver Length: 12.3 cm Gallbladder Wall: 0.1 cm CBD: 0.5 cm Right Kidney: 10.2 x 5.8 x 4.0 cm Pancreas: wnl Liver: wnl Gallbladder: multiple, mobile shadowing gallstones seen Evidence for sonographic Soto's sign: no per patient CBD: wnl Right Kidney: No hydronephrosis or masses seen IMPRESSION: There are numerous gallstones. No dilated ducts. No focal liver defect.
[2021-03-09] MEDS ORDERED: NALOXONE 0.4 MG/ML 1 ML VIAL IV PRN (19:12)
[2021-03-09] MEDS ORDERED: MORPHINE SULFATE 4 MG/ML SYRINGE IV PRN (19:13)
[2021-03-09] MEDS ORDERED: ONDANSETRON 4 MG/2 ML VIAL IVP PRN (19:13)
[2021-03-09] MEDS ORDERED: ALPRAZolam 0.5 MG TAB PO STA (21:17)
[2021-03-09] MEDS: SODIUM CHLORIDE 0.9% 1,000 ML IV SCH (21:20)
[2021-03-10] MEDS: SODIUM CHLORIDE 0.9% 1,000 ML IV SCH ×2 (04:56→19:51)
[2021-03-10 09:01] LABS: African American GFR (CKD) 118.8 (60.0-200.0); Albumin 3.8 g/dL (3.80-4.90); Albumin/Globulin Ratio 1.65 (1.60-3.17); Anion Gap 6.6 mmol/L (4.00-12.00); BUN/Creat Ratio 8.75 Ratio (12.00-20.00); Calcium 8.8 mg/dL (8.7-10.3); Carbon Dioxide 20.4 mmol/L (21.6-31.8); Globulin 2.3 g/dL (1.6-3.3); Non-African American GFR(CKD) 102.5 (60.0-200.0); Potassium 4.7 mmol/L (3.5-5.5); Total Bilirubin 0.9 mg/dL (0.3-1.2); Total Protein 6.1 g/dL (6.2-8.2)
--- NOTE | 2021-03-10 09:38 | P.CONS ---
History of Present Illness - Reason for Consult Consult date: 03/10/21 choledocholithiasis Requesting physician: Cyndie Arthur - Chief Complaint abdominal pain - History of Present Illness This a 25-year-old white female who presented to the emergency department with complaints of epigastric pain which she states was severe and had her doubled over. He has a past medical history including anxiety, depression, and asthma. Patient states abdominal pain started about 1-2 weeks ago however was not consistent. Starting this past Sunday the epigastric pain was more consistent and associated with nausea but no vomiting. Patient came into the emergency department for further evaluation. Initially she had elevation in her LFTs with a total bilirubin of 1.5, alkaline phosphatase 200, AST 525, ALT 784. WBC 6, hemoglobin 14, hematocrit 41, platelet count 271,000 INR 1.0. Repeat labs today showed improvement of total bilirubin at 0.9, alkaline phosphatase 188, AST 257, ALT 594. She denies any previous history of gallstones, no history of acid reflux or peptic ulcer disease. Review of Systems REVIEW OF SYSTEMS: CARDIOPULMONARY: No chest pain or shortness of breath. Gastrointestinal: Pain in epigastric region. Nausea with no vomiting. No hematemesis, coffee-ground emesis. No rectal bleeding, or melena. GENITOURINARY: No dysuria or hematuria. MUSCULOSKELETAL: Reports normal range of motion., Joint pain. SKIN: No rashes. No jaundice. ENDOCRINE: No chills, fevers. No excessive weight gain or loss. No polydipsia or polyuria. PSYCHIATRIC: Unremarkable. NEUROLOGY: No change in mental status. Denies dizziness, headache. ENT: Vision unremarkable. CONSTITUTIONAL: No recent weight loss. No fever, chills, night sweats. Past Medical History Past Medical History: Asthma Additional Past Medical History / Comment(s): low blood pressure History of Any Multi-Drug Resistant Organisms: MRSA Year Discovered:: 2010 MDRO Source:: at waist line Past Surgical History: Section, Ear Surgery Past Anesthesia/Blood Transfusion Reactions: No Reported Reaction Past Psychological History: Anxiety, Depression, Panic Disorder Additional Psychological History / Comment(s): no current medications Smoking Status: Never smoker Past Alcohol Use History: Occasional Past Drug Use History: Marijuana - Past Family History Mother Additional Family Medical History / Comment(s): alcohol addiction Medications and Allergies Home Medications Medication Instructions Recorded Confirmed Type Dicyclomine [Bentyl] 20 mg PO QID PRN 03/09/21 03/09/21 History Fluoride (Sodium) [Sodium Fluoride 1 applic DENTAL BID 03/09/21 03/09/21 History 5000 Plus] Hydrocortisone Cream 1 applic TOPICAL BID PRN 03/09/21 03/09/21 History [Hydrocortisone 2.5% Cream] Ondansetron HCl [Zofran] 4 mg PO Q6H PRN 03/09/21 03/09/21 History Allergies Allergy/AdvReac Type Severity Reaction Status Date / Time sulfamethoxazole Allergy Rash/Hives Verified 03/09/21 20:13 [From Bactrim] trimethoprim [From Bactrim] Allergy Rash/Hives Verified 03/09/21 20:13 Physical Exam Vitals: Vital Signs Temp Pulse Pulse Resp BP BP Pulse Ox 03/10/21 07:00 97.4 F L 71 18 97/58 97 03/10/21 02:00 98.2 F 68 17 93/56 96 03/09/21 21:25 98.0 F 82 18 137/84 98 03/09/21 20:55 98.3 F 54 L 17 102/67 97 03/09/21 16:12 98.0 F 93 17 134/80 99 Intake and Output 03/09/21 03/10/21 03/10/21 22:59 06:59 14:59 Intake Total 120 Balance 120 Intake: Oral 120 Other: Voiding Method Toilet Toilet # Voids 1 Weight 62.142 kg General appearance: The patient is alert, oriented, appears in no acute distress. HET: Head is normocephalic and atraumatic. Conjunctiva pink. Sclera anicteric. Neck: Supple without lymphadenopathy. Trachea midline. Heart: S1 S2. Regular rate and rhythm. Lungs: Clear to auscultation. Abdomen: Soft, right upper quadrant and epigastric tenderness, nondistended with bowel sounds. No guarding or rigidity. Skin: No rashes. No jaundice. Extremities: Normal skin color and turgor. No pedal edema. Neurological: No focal deficits. Alert and oriented 3.. Results CBC & Chem 7: 03/09/21 17:00 03/10/21 05:37 Labs: Abnormal Lab Results - Last 24 Hours (Table) 03/09/21 03/09/21 03/10/21 Range/Units 17:00 17:00 05:37 Chloride 114 H (96-109) mmol/L Carbon Dioxide 20.4 L (21.6-31.8) mmol/L BUN 7.0 L (9.0-27.0) mg/dL BUN/Creatinine Ratio 8.75 L (12.00-20.00) Ratio Glucose 100 H (74-99) mg/dL Total Bilirubin 1.5 H (0.2-1.3) mg/dL AST 525 H 257 H (14-36) U/L ALT 784 H 594 H (4-34) U/L Alkaline Phosphatase 200 H 188 H (38-126) U/L Total Protein 6.1 L (6.2-8.2) g/dL Urine Appearance Cloudy H (Clear) Urine Protein Trace H (Negative) Urine Bilirubin 1+ H (Negative) Ur Leukocyte Esterase Trace H (Negative) Ur Squamous Epith Cells 11 H (0-4) /hpf Urine Bacteria Many H (None) /hpf Urine Yeast (Budding) Many H (None) /hpf Comments: Ultrasound gallbladder: Showing numerous gallstones, no CBD dilation, measuring at 0.5 cm. MRCP shows cholelithiasis with no evidence of biliary ductal dilation. However on axial image 15 there is a 1 mm area of low signal within the distal common bile duct which could represent a tiny stone. Correlate clinically. Assessment and Plan (1) Transaminitis Narrative/Plan: 25-year-old female who presented to the emergency department with complaints of epigastric and right upper quadrant pain that began 1-2 weeks ago. She was noted to have elevated LFTs including a bilirubin of 1.5, alkaline phosphatase 200, AST 525, ALT 784 on admission. Ultrasound of the gallbladder was completed showing numerous gallstones without any CBD dilation, with CBD measuring 0.5 cm. Today's LFTs are trending down with a total bilirubin at 0.9, alkaline phosphatase 188, AST 257, and ALT 594. Patient states she still having right upper quadrant pain and epigastric pain, associated with nausea but no vomiting. MRCP has been ordered to rule out CBD obstruction. MRCP showing cholelithiasis with no evidence of biliary ductal dilation, however on axial image 15 there is a 1 mm area of low signal within the distal common bile duct which could represent a tiny stone. Correlate clinically. Likely patient passed stone, liver enzymes are not consistent with obstruction. Plans on ERCP. Will repeat labs in the morning. Recommend proceeding with cholecystectomy. Current Visit: Yes Status: Acute Code(s): R74.01 - ELEVATION OF LEVELS OF LIVER TRANSAMINASE LEVELS SNOMED Code(s): 484479653 (2) Cholelithiasis Current Visit: Yes Status: Acute Code(s): K80.20 - CALCULUS OF GALLBLADDER W/O CHOLECYSTITIS W/O OBSTRUCTION SNOMED Code(s): 722081125 (3) Epigastric pain Current Visit: Yes Status: Acute Code(s): R10.13 - EPIGASTRIC PAIN SNOMED Code(s): 86736817 Plan: 1. Continue symptomatic and supportive care 2. Continue with pain control 3. Patient may have low-fat diet, nothing by mouth after midnight 4. MRCP ordered and reviewed 5. Plan is for cholecystectomy tomorrow with Dr. Arthur 6. No plans for ERCP 7. Repeat CMP in the morning Thank you for this consultation, we will continue to follow. Dr. Shirley Abebe I agree with the dictator's note, documented as a scribe by Luz Newsome.
--- NOTE | 2021-03-10 11:07 | MR ---
EXAMINATION TYPE: MR MRCP DATE OF EXAM: 03/10/2021 COMPARISON: Ultrasound 03/09/2021 HISTORY: Abdominal pain, elevated LFTs. Standard multiplanar, multisequence MRI departmental protocol Multiplanar, multisequence images of the MRCP were acquired. FINDINGS: The intrahepatic and extra hepatic bile ducts are of normal caliber. Liver, axial image 15 there is a punctate 1 mm area of low signal within the distal CBD near the ampulla. Numerous gallstones are inc identally noted. The kidneys and adrenal glands have a normal appearance. Spleen, pancreas and liver demonstrate no ab normality. Visualized aorta of normal caliber. IMPRESSION: Cholelithiasis with no evidence of biliary ductal dilation. However, on axial image 15 there is a 1 m m area of low signal within the distal common bile duct which could represent a tiny stone. Correlate clinically.
[2021-03-10] MEDS ORDERED: DICYCLOMINE 20 MG TAB PO PRN (12:39)
[2021-03-10] MEDS ORDERED: HYDROCORTISONE 1% CREAM 30 GM TUBE TOPICAL PRN (12:39)
--- NOTE | 2021-03-10 13:18 | HP ---
HISTORY AND PHYSICAL DATE OF SERVICE: 03/10/2021 CHIEF COMPLAINT: Abdominal pain. HISTORY OF PRESENT ILLNESS: This 25-year-old woman with a past medical history of asthma, history of low blood pressure, MRSA, being followed by Dr. Yanick Laguna in the outpatient setting, was complaining of epigastric pain for the past one week. The pain was worsening and sometimes radiating in the upper abdomen on both sides. The patient came to [facility] and was admitted for further evaluation and treatment. Evaluation showed elevated bilirubin, elevated AST, ALT, alkaline phosphatase. The patient also had a gallbladder ultrasound which showed numerous gallstones. The patient had an MRCP which showed cholelithiasis with no evidence of biliary ductal dilatation; 1 mm area of low signal in the distal common duct was suspected. There is no history of any fever, rigors or chills at this time. PAST MEDICAL HISTORY: History of asthma, low blood pressure, MRSA, anxiety and depression. MEDICATIONS: Home medications are Zofran, hydrocortisone, sodium fluoride, Bentyl. ALLERGIES: BACTRIM. FAMILY HISTORY: ntd SOCIAL HISTORY: Occasional alcohol intake. History of THC. REVIEW OF SYSTEMS: ENT: No diminished hearing. No diminished vision. CARDIOVASCULAR SYSTEM: As mentioned earlier. RESPIRATORY SYSTEM: As mentioned earlier. GI: As mentioned earlier. : No dysuria. NERVOUS SYSTEM: No numbness, weakness. ALLERGY/IMMUNOLOGY: No asthma or hay fever. MUSCULOSKELETAL: As mentioned earlier. HEMATOLOGY/ONCOLOGY: No history of anemia. ENDOCRINE: No history of diabetes or hypothyroidism. CONSTITUTIONAL: As mentioned earlier. DERMATOLOGY: Negative. RHEUMATOLOGY: Negative. PSYCHIATRY: As mentioned earlier. PHYSICAL EXAMINATION: Patient alert and oriented x3. Pulse 71, blood pressure 97/58, respiration 18, temperature 97.4, pulse ox 97% on room air. HEENT: Conjunctivae normal. NECK: No jugular venous distention. CARDIOVASCULAR: S1, S2 muffled. RESPIRATION: Breath sounds diminished at the bases. A few scattered rhonchi and crackles. ABDOMEN: Soft, non-tender. No mass palpable. LEGS: No edema. No swelling. NERVOUS SYSTEM: Higher functions as mentioned earlier. Moves all 4 limbs. No focal motor or sensory deficit. LYMPHATICS: No lymph node palpable in neck, axillae or groin. SKIN: No ulcer, rash, bleeding. JOINTS: No active deforming arthropathy. LABS: CBC within normal limits. Sodium 141, potassium 4.7. BUN is 7. Otherwise, total bilirubin is 1.5, AST is 525, ALT 784, alkaline phosphatase 200. Other labs labs are noted. Ultrasound reviewed personally. ASSESSMENT: 1. Abdominal pain, possible acute cholelithiasis and choledocholithiasis. 2. Elevated bilirubin. 3. Elevated AST and ALT. 4. Elevated alkaline phosphatase. 5. Hyperchloremia. 6. History of asthma. 7. History of low blood pressure. 8. History of MRSA. 9. History of section. 10.History of anxiety, depression, panic disorder. 11.History of THC. 12.FULL CODE. RECOMMENDATIONS AND DISCUSSION: In this 25-year-old woman who presented with multiple complex medical issues, we will monitor the patient closely, continue the current medications, continue symptomatic treatment. Otherwise at this time I would recommend MRCP and closely follow with Surgery for possible cholecystectomy. GI input appreciated. Further recommendations to follow. A copy of this dictation is being forwarded to Dr. Yanick Laguna, who is the primary physician. PATIENCE / DEONTEN: [id number] / JAMAL
[2021-03-10] MEDS: KETOROLAC 15 MG/ML 1 ML VIAL IVP PRN (13:43)
--- NOTE | 2021-03-10 22:17 | P.GSCN ---
History of Present Illness Consult date: 03/10/21 History of present illness: CHIEF COMPLAINT: Symptomatic cholelithiasis with transaminitis HISTORY OF PRESENT ILLNESS: The patient is a 25 year old female who reports fe eling ill on and off for at least 1 week. Her last meal included chicken wings and fries with resultant epigastric including acute right upper quadrant abdominal pain moderate to severe. She does report a family history of gallbladder disorder in her mother and grandmother. Her labs upon presentation demonstrated elevated total bilirubin and LFTs consistent with symptomatic cholelithiasis. General surgery is consulted for symptomatic gallstones. PAST MEDICAL HISTORY: See list and reviewed PAST SURGICAL HISTORY: See list and reviewed MEDICATIONS: See list and reviewed ALLERGIES: See list and reviewed SOCIAL HISTORY: See list and reviewed FAMILY HISTORY: See list and reviewed REVIEW OF ORGAN SYSTEMS: CONSTITUTIONAL: No fevers or chills. No recent weight loss. EYES: Denies any trouble with vision. No glasses. HEENT: No difficulties with hearing. No nosebleeds. No difficulty swallowing. RESPIRATORY: Has asthma. CARDIOVASCULAR: Has low blood pressure. GASTROINTESTINAL: Denies fatty food intolerance. Denies change in bowel habits and gas bloat. GENITOURINARY: Denies any blood in urine or increased urinary frequency. NEUROLOGICAL: Denies any numbness or tingling along the distal extremities. No seizure disorders or headaches. MUSCULOSKELETAL: Denies any back pain, stiffness or joint arthritis. SKIN: No current skin cancer. No rash. Has MRSA. PSYCHIATRIC: Has anxiety, depression, panic disorder. ENDOCRINE: Denies current thyroid disorders. Denies any blood sugar glucose intolerance. HEME/LYMPHATIC: Denies any lumps and bumps around the neck. No recent deep venous thrombosis. ALLERGY/IMMUNOLOGY: No immunoglobulin therapy. No immune deficiencies. BREAST: Denies current breast lumps, pain or nipple discharge. PHYSICAL EXAM: VITALS: Reviewed CONSTITUTIONAL: Well developed and in no acute distress. EYES: Conjuctivae without sclera icterus. Extraocular movements grossly intact. HEAD, EARS, NOSE, THROAT: Moist buccal mucosa. Head is atraumatic, normocephalic. Hears conversational speech. No nasal drainage. NECK: Supple. No JV distention. No thyroidomegaly. RESPIRATORY: Non-labored respirations and equal bilateral excursions. No gross wheezes. CARDIOVASCULAR: Regular rate and rhythm. Palpable 2+ radial pulses. ABDOMEN: Tender at epigastrium and right upper quadrant. LYMPH: No neck lymphadenopathy. MUSCULOSKELETAL: Nail and fingers with good capillary refill. SKIN: Warm and well perfused with good skin turgor. NEUROLOGIC: Cranial nerves II through XII grossly intact. Sensation upper and extremities intact. No focal or lateralizing signs. PSYCH: Appropriate affect. Alert and oriented to person, place and time. Displ ays appropriate insight. CLINCAL LABS: Reviewed. WBC 6.0. Total bilirubin is 1.5 elevated, AST 525 elevated, ALT elevated 784. LFTs are improved. IMAGING: Independently reviewed ultrasound of the gallbladder reviewed with gallstones. This is my independent interpretation. RADIOLOGY: Report reviewed ultrasound with CBD within normal limits. ASSESSMENT: 1. Gallstones 2. Elevated LFTs PLAN: 1. Low fat diet. 2. GI consultation for possible choledocholithiasis 3. Recommend cholecystectomy Thank you for this kind consultation. Past Medical History Past Medical History: Asthma Additional Past Medical History / Comment(s): low blood pressure History of Any Multi-Drug Resistant Organisms: MRSA Year Discovered:: 2010 MDRO Source:: at waist line Past Surgical History: Section, Ear Surgery Past Anesthesia/Blood Transfusion Reactions: No Reported Reaction Past Psychological History: Anxiety, Depression, Panic Disorder Additional Psychological History / Comment(s): no current medications Smoking Status: Never smoker Past Alcohol Use History: Occasional Past Drug Use History: Marijuana - Past Family History Mother Additional Family Medical History / Comment(s): alcohol addiction Medications and Allergies Home Medications Medication Instructions Recorded Confirmed Type Dicyclomine [Bentyl] 20 mg PO QID PRN 03/09/21 03/09/21 History Fluoride (Sodium) [Sodium Fluoride 1 applic DENTAL BID 03/09/21 03/09/21 History 5000 Plus] Hydrocortisone Cream 1 applic TOPICAL BID PRN 03/09/21 03/09/21 History [Hydrocortisone 2.5% Cream] Ondansetron HCl [Zofran] 4 mg PO Q6H PRN 03/09/21 03/09/21 History Allergies Allergy/AdvReac Type Severity Reaction Status Date / Time sulfamethoxazole Allergy Rash/Hives Verified 03/09/21 20:13 [From Bactrim] trimethoprim [From Bactrim] Allergy Rash/Hives Verified 03/09/21 20:13 Surgical - Exam Vital Signs Temp Pulse Resp BP Pulse Ox 98.0 F 93 17 134/80 99 03/09/21 16:12 03/09/21 16:12 03/09/21 16:12 03/09/21 16:12 03/09/21 16:12 Results - Labs 03/09/21 17:00 03/10/21 05:37 Abnormal Lab Results - Last 24 Hours (Table) 03/10/21 Range/Units 05:37 Chloride 114 H (96-109) mmol/L Carbon Dioxide 20.4 L (21.6-31.8) mmol/L BUN 7.0 L (9.0-27.0) mg/dL BUN/Creatinine Ratio 8.75 L (12.00-20.00) Ratio AST 257 H (13-35) U/L ALT 594 H (8-44) U/L Alkaline Phosphatase 188 H (41-126) U/L Total Protein 6.1 L (6.2-8.2) g/dL Diabetes panel 03/10/21 Range/Units 05:37 Sodium 141 (135-145) mmol/L Potassium 4.7 (3.5-5.5) mmol/L Chloride 114 H (96-109) mmol/L Carbon Dioxide 20.4 L (21.6-31.8) mmol/L BUN 7.0 L (9.0-27.0) mg/dL Creatinine 0.8 (0.6-1.5) mg/dL Glucose 95 (70-110) mg/dL Calcium 8.8 (8.7-10.3) mg/dL AST 257 H (13-35) U/L ALT 594 H (8-44) U/L Alkaline Phosphatase 188 H (41-126) U/L Total Protein 6.1 L (6.2-8.2) g/dL Albumin 3.80 (3.80-4.90) g/dL Calcium panel 03/10/21 Range/Units 05:37 Calcium 8.8 (8.7-10.3) mg/dL Albumin 3.80 (3.80-4.90) g/dL Pituitary panel 03/10/21 Range/Units 05:37 Sodium 141 (135-145) mmol/L Potassium 4.7 (3.5-5.5) mmol/L Chloride 114 H (96-109) mmol/L Carbon Dioxide 20.4 L (21.6-31.8) mmol/L BUN 7.0 L (9.0-27.0) mg/dL Creatinine 0.8 (0.6-1.5) mg/dL Glucose 95 (70-110) mg/dL Calcium 8.8 (8.7-10.3) mg/dL Adrenal panel 03/10/21 Range/Units 05:37 Sodium 141 (135-145) mmol/L Potassium 4.7 (3.5-5.5) mmol/L Chloride 114 H (96-109) mmol/L Carbon Dioxide 20.4 L (21.6-31.8) mmol/L BUN 7.0 L (9.0-27.0) mg/dL Creatinine 0.8 (0.6-1.5) mg/dL Glucose 95 (70-110) mg/dL Calcium 8.8 (8.7-10.3) mg/dL Total Bilirubin 0.9 (0.3-1.2) mg/dL AST 257 H (13-35) U/L ALT 594 H (8-44) U/L Alkaline Phosphatase 188 H (41-126) U/L Total Protein 6.1 L (6.2-8.2) g/dL Albumin 3.80 (3.80-4.90) g/dL Assessment and Plan (1) Cholelithiasis Current Visit: Yes Status: Acute Code(s): K80.20 - CALCULUS OF GALLBLADDER W/O CHOLECYSTITIS W/O OBSTRUCTION SNOMED Code(s): 751934708 (2) Epigastric pain Current Visit: Yes Status: Acute Code(s): R10.13 - EPIGASTRIC PAIN SNOMED Code(s): 62629141 (3) Transaminitis Current Visit: Yes Status: Acute Code(s): R74.01 - ELEVATION OF LEVELS OF LIVER TRANSAMINASE LEVELS SNOMED Code(s): 174090173
[2021-03-11] MEDS: SODIUM CHLORIDE 0.9% 1,000 ML IV SCH ×4 (06:52→11:08)
[2021-03-11] MEDS ORDERED: HEPARIN SODIUM,PORCINE/PF 5,000 UNIT/0.5 ML SYRINGE SQ PRN (07:43)
[2021-03-11] MEDS ORDERED: INDOCYANINE GREEN 25 MG VIAL IV STA (07:43)
[2021-03-11] MEDS ORDERED: SCOPOLAMINE 1.5MG/72HR PATCH TRANSDERM SCH (07:45)
--- NOTE | 2021-03-11 07:45 | P.HPADDEND ---
H&P Addendum H&P Addendum Date: 03/11/21 Patient presents with choledocholithiasis due to symptomatic cholelithiasis. Robotic cholecystectomy described.
[2021-03-11] MEDS: KETOROLAC 15 MG/ML 1 ML VIAL IVP PRN (09:29)
[2021-03-11 10:28] LABS: Basophils # (A) 0.05 X 10*3/uL (0.00-0.10); Basophils % (A) 0.8 %; Eosinophils # (A) 0.23 X 10*3/uL (0.04-0.35); Eosinophils % (A) 3.9 %; HCT 40.5 % (37.2-46.3); HGB 12.9 g/dL (12.0-15.0); Lymphocytes # (A) 1.51 X 10*3/uL (0.90-5.00); Lymphocytes % (A) 25.3 %; MCH 28.9 pg (27.0-32.0); MCHC 31.9 g/dL (32.0-37.0); MCV 90.8 fL (80.0-97.0); Mean Platelet Volume 12.3 fL (9.5-12.2); Monocytes % (A) 6.7 %; Neutrophils # (A) 3.76 X 10*3/uL (1.80-7.70); Platelet Count 226 X 10*3/uL (140-440); RBC 4.46 X 10*6/uL (4.10-5.20); RDW 12.9 % (11.5-14.5); WBC 5.97 X 10*3/uL (4.50-10.00)
[2021-03-11] MEDS ORDERED: DEXAMETHASONE SOD PHOSPHATE 4 MG/ML 1 ML VIAL IVP ONE (10:33)
[2021-03-11] MEDS ORDERED: SUCCINYLCHOLINE CHLORIDE 100 MG/5 ML SYR IV ONE (11:03)
[2021-03-11] MEDS ORDERED: PROPOFOL 10 MG/ML 20 ML VIAL IV ONE (11:03)
[2021-03-11] MEDS ORDERED: fentaNYL (PF) 50 MCG/ML 2 ML AMP ONE (11:03)
[2021-03-11] MEDS ORDERED: MIDAZOLAM 2 MG/2 ML VIAL ONE (11:03)
[2021-03-11] MEDS ORDERED: LIDOCAINE 1% INJ 10MG/ML (20 ML MDV) ONE (11:03)
[2021-03-11] MEDS ORDERED: ROCURONIUM 10 MG/ML (5 ML VIAL) IV ONE (11:03)
[2021-03-11] MEDS ORDERED: SUGAMMADEX SODIUM 500 MG/5 ML SDV IV ONE (11:03)
[2021-03-11] MEDS ORDERED: KETOROLAC 15 MG/ML 1 ML VIAL ONE (11:03)
[2021-03-11] MEDS ORDERED: INDOCYANINE GREEN 25 MG VIAL IV ONE (11:03)
[2021-03-11] MEDS ORDERED: ePHEDrine SULFATE/0.9% NACL/PF 50 MG/5 ML SYRINGE IV ONE (11:03)
[2021-03-11] MEDS ORDERED: HYDROmorphone (PF) 1 MG/ML ONE (11:03)
[2021-03-11 11:06] LABS: African American GFR (CKD) 118.8 (60.0-200.0); Albumin 4.1 g/dL (3.80-4.90); Albumin/Globulin Ratio 1.71 (1.60-3.17); Anion Gap 7.3 mmol/L (4.00-12.00); BUN/Creat Ratio 13.75 Ratio (12.00-20.00); Calcium 9.2 mg/dL (8.7-10.3); Carbon Dioxide 25.7 mmol/L (21.6-31.8); Globulin 2.4 g/dL (1.6-3.3); Non-African American GFR(CKD) 102.5 (60.0-200.0); Potassium 4.6 mmol/L (3.5-5.5); Total Bilirubin 0.5 mg/dL (0.3-1.2); Total Protein 6.5 g/dL (6.2-8.2)
[2021-03-11] MEDS ORDERED: LIDOCAINE 1%-EPI 1:100,000 20 ML VIAL SQ ONE (11:23)
[2021-03-11] MEDS ORDERED: LACTATED RINGERS 1,000 ML IV ONE ×2 (12:30)
--- NOTE | 2021-03-11 14:05 | P.PN ---
Subjective Progress Note Date: 03/11/21 Principal diagnosis: Abdominal pain, choledocholithiasis This a 25-year-old white female who presented to the emergency department with complaints of epigastric pain which she states was severe and had her doubled over. He has a past medical history including anxiety, depression, and asthma. Patient states abdominal pain started about 1-2 weeks ago however was not consistent. Starting this past Sunday the epigastric pain was more consistent and associated with nausea but no vomiting. Patient came into the emergency department for further evaluation. Patient's initial labs showed elevation in LFTs with a total bilirubin 1.5, alkaline phosphatase 200, AST 525, ALT 74, she underwent an MRCP showing cholelithiasis with no evidence of biliary ductal dilation. However on axial image 15 there is 1 mm area of low signal within the distal common bile duct which could represent a tiny stone. Correlate clinically. Patient had a decrease in her LFTs yesterday including her total bilirubin decreasing to 0.9. Today she has had further improvement in her LFTs, total bilirubin 0.5, alkaline phosphatase 172, AST 121, ALT 451. She was scheduled this morning for a robotic cholecystectomy with Dr. Arthur. Objective - Vital Signs Vital signs: Vital Signs Temp 98.0 F 03/11/21 10:22 Pulse 98 03/11/21 10:22 Resp 15 03/11/21 10:22 BP 110/72 03/11/21 10:22 Pulse Ox 98 03/11/21 10:22 Intake & Output 03/10/21 03/11/21 03/11/21 18:59 06:59 18:59 Intake Total 480 950 Output Total 5 Balance 480 945 Weight 62.14 kg Intake: IV 950 Oral 480 Output: Estimated Blood Loss 5 Other: Voiding Method Toilet Toilet # Voids 3 1 - Exam General appearance: The patient is alert, oriented, appears in no acute distress. HET: Head is normocephalic and atraumatic. Conjunctiva pink. Sclera anicteric. Neck: Supple without lymphadenopathy. Abdomen: Soft, surgical tenderness, nondistended with bowel sounds. No guarding or rigidity. Extremities: Normal skin color and turgor. No pedal edema Skin: No rashes, no jaundice Neurological: No focal deficits. Alert and oriented 3. - Labs CBC & Chem 7: 03/11/21 06:10 03/11/21 06:10 Labs: Abnormal Lab Results - Last 24 Hours (Table) 03/11/21 03/11/21 Range/Units 06:10 06:10 MCHC 31.9 L (32.0-37.0) g/dL MPV 12.3 H (9.5-12.2) fL AST 121 H (13-35) U/L ALT 451 H (8-44) U/L Alkaline Phosphatase 172 H (41-126) U/L Assessment and Plan (1) Transaminitis Narrative/Plan: 25-year-old female who presented to the emergency department with complaints of epigastric and right upper quadrant pain that began 1-2 weeks ago. She was noted to have elevated LFTs including a bilirubin of 1.5, alkaline phosphatase 200, AST 525, ALT 784 on admission. Ultrasound of the gallbladder was completed showing numerous gallstones without any CBD dilation, with CBD measuring 0.5 cm. Today's LFTs are trending down with a total bilirubin at 0.9, alkaline phosphatase 188, AST 257, and ALT 594. Patient states she still having right upper quadrant pain and epigastric pain, associated with nausea but no vomiting. MRCP has been ordered to rule out CBD obstruction. MRCP showing cholelithiasis with no evidence of biliary ductal dilation, however on axial image 15 there is a 1 mm area of low signal within the distal common bile duct which could represent a tiny stone. Correlate clinically. Likely patient passed stone, liver enzymes are not consistent with obstruction. Plans on ERCP. Will repeat labs in the morning. Recommend proceeding with cholecystectomy. Current Visit: Yes Status: Acute Code(s): R74.01 - ELEVATION OF LEVELS OF LIVER TRANSAMINASE LEVELS SNOMED Code(s): 492790669 (2) Cholelithiasis Narrative/Plan: Patient underwent robotic cholecystectomy today with Dr. Arthur Current Visit: Yes Status: Acute Code(s): K80.20 - CALCULUS OF GALLBLADDER W/O CHOLECYSTITIS W/O OBSTRUCTION SNOMED Code(s): 054199482 (3) Epigastric pain Current Visit: Yes Status: Acute Code(s): R10.13 - EPIGASTRIC PAIN SNOMED Code(s): 80242469 Plan: 1. Continue symptomatic and supportive care 2. Diet per surgical service recommendation 3. MRCP ordered and reviewed 4. Repeat LFTs were ordered and reviewed, continuing to trend down 5. No plans for ERCP Thank you for allowing us to participate in the care of the patient, the GI s ervice will sign off, gastroenterology will not be available at the hospital this weekend and if further evaluation by gastroenterology is required the patient will need transfer as per the primary team's discretion. Dr. Shirley Abebe I agree with the dictator's note, documented as a scribe by Luz Newsome.
[2021-03-11] MEDS ORDERED: ONDANSETRON 4 MG/2 ML VIAL IVP PRN (17:07)
[2021-03-11] MEDS ORDERED: HYDROmorphone 0.5 MG/0.5 ML SYRINGE IVP PRN (17:07)
--- NOTE | 2021-03-11 17:18 | P.OP ---
Date of Procedure: 03/11/21 Description of Procedure: SURGEON: SOTO VILLA MD PREOPERATIVE DIAGNOSES: 1. Symptomatic cholelithiasis with choledocholithiasis 2. Elevated liver enzymes 3. Family history gallbladder disease 4. Generalized anxiety disorder 5. Depressive disorder 6. Panic disorder 7. Chronic obstructive pulmonary disease with asthma POSTOPERATIVE DIAGNOSES: 1. Symptomatic cholelithiasis with choledocholithiasis 2. Elevated liver enzymes 3. Family history gallbladder disease 4. Generalized anxiety disorder 5. Depressive disorder 6. Panic disorder 7. Chronic obstructive pulmonary disease with asthma OPERATION: Robotic-assisted da Charlotte Xi laparoscopic cholecystectomy, multiport with FIREFLY ESTIMATED BLOOD LOSS: 5 mL. SPECIMENS REMOVED: Gallbladder. COMPLICATIONS: None. OPERATIVE FINDINGS: 1. Distended gallbladder 2. Careful manipulation of gallbladder to minimize risk of increased choledocholithiasis 3. Dome down technique performed due to inflammation at the cystic duct INDICATIONS: The patient is a 25 year-old female who presents with epigastric right upper quadrant pain, symptomatic gallstones, including elevated transaminases and total bilirubin consistent with choledocholithiasis. Surgical intervention with cholecystectomy was described. Robotic assisted laparoscopic approach was described. Benefits and risks of the procedure including but not limited to bleeding, infection, injury to the biliary tree was reviewed. Informed consent was obtained. DESCRIPTION OF PROCEDURE: Patient was brought to the operating room, placed in supine position. After general induction, the abdomen had been prepped and draped in standard sterile fashion. The robotic da Charlotte XI system was primed. After a timeout protocol was performed, the patient had been prepped and draped in standard sterile fashion. The patient was injected with indocyanine green. A 5 mm 0 degrees laparoscopic trocar entry was performed along the left upper quadrant. The abdomen insufflated to 15 mmHg pressure which was tolerated well. Diagnostic laparoscopy demonstrated no injury to bowel viscera or mesentery. The liver surface was unremarkable. A moderately distended gallbladder was identified adding complexity to the case. Next, two 8 mm robotic ports were placed along the right upper abdomen. The camera 8-mm port was maintained along the epigastrium. Another 8 mm port was placed along the left upper abdominal wall after exchanging the 5 mm port. Please note that the ports were placed at least 10 to 15 cm away from the target anatomy of the gallbladder. The robot was docked along the left lateral abdomen. The patient was repositioned in reverse Trendelenburg position with the right side up. Using a grasper for arm 3, a grasper for arm 4, including hook cautery for arm 1, the robotic system was docked and primed as described. Instruments were inte rchanged by the railways assistant including hook cautery, Bovie cautery and clip appliers. I had sat at the console. The liver was reflected towards the dome of the diaphragm for minimal manipulation along the gallbladder. The gallbladder was moderately distended adding complexity to the case. Moderate edema was found along the cystic triangle including infundibulum. Initial dissection was performed on the gallbladder infundibulum using indocyanine green to illuminate the cystic duct and common bile duct. The common bile duct was within normal limits. Due to moderate distention of the infundibulum, dome down technique was performed with minimal manipulation of the gallbladder to minimize risk of increased bile duct stones. Using a sponge, the liver was reflected towards the diaphragm and starting at the gallbladder fundus, hook cautery was used to find the avascular plane between the liver and the gallbladder. As the gallbladder was dissected from the hepatic fossa, hemostasis was checked. Next, indocyanine green was used to confirm the common bile duct as well as cystic duct. The cystic duct was short and dissection was performed at the junction of the cystic duct and infundi bulum. The infundibulum was retracted laterally to expose the cystic duct away from the common bile duct. The cystic duct was dissected free from its surrounding tissue. FIREFLY was used to identify the cystic structures. A critical view of safety was obtained. Large PLASTIC clips were used throughout the entire case. Using a clip director call, a clip was placed at the junction of the infundibulum and cystic duct. The cystic duct was divided using vessel sealer. Next, the cystic artery was divided using hook cautery. Electro-Bovie cautery and vessel sealer was used to remove the gallbladder without decompression. Hemostasis was checked and found to be adequate. The robot was undocked. I re-scrubbed into the case. A 10 mm Endo Catch bag was used to remove the gallbladder in total via the left upper quadrant incision after widening the incision. The specimen was removed from the abdominal cavity. All pneumoperitoneum instruments were evacuated from the abdominal cavity. The incisions were cleansed using dilute hydrogen peroxide. The incisions were reapproximated using 4-0 Monocryl in an interrupted subcuticular fashion. Please note along the trocar sites, local anesthetic was placed as a field block prior to insertion of all instruments. Liquid glue was applied to the skin. At the end of the procedure needle, sponge, and instrument count had been verified correct by the surgical instrument repair specialist. The patient was transferred to postanesthesia care unit in stable condition.
[2021-03-11] MEDS: ACETAMINOPHEN TAB 325 MG TAB PO SCH (17:29)
[2021-03-11] MEDS: KETOROLAC 15 MG/ML 1 ML VIAL IVP SCH (17:30)
--- NOTE | 2021-03-11 18:50 | PN ---
PROGRESS NOTE DATE OF SERVICE: 03/11/2021 This 25-year-old woman was admitted with abdominal pain had the patient underwent a robotic assisted laparoscopic cholecystectomy. No chest pain. No palpitations. No fever. PHYSICAL EXAMINATION: Alert and oriented times three. Pulse 59, blood pressure 101/60, respirations 16, temperature 98.1, pulse ox 97% on room air. HEENT: Conjunctivae normal. NECK: No JVD. CARDIOVASCULAR: S1, S2 muffled. RESPIRATORY SYSTEM: Breath sounds diminished at the bases. No rhonchi. No crackles. ABDOMEN: Soft, status post surgery. LEGS are no edema. No swelling. NERVOUS SYSTEM: No focal deficits. LABORATORY DATA: CBC noted. Otherwise AST/ALT noted. Levels are slightly improving. ASSESSMENT: 1. Abdominal pain possible acute cholelithiasis and choledocholithiasis, status post laparoscopic cholecystectomy. 2. Elevated bilirubin. 3. Elevated AST/ALT. 4. Elevated alkaline phosphatase. 5. Hypochloremia. 6. History of asthma. 7. History of low blood pressure. 8. History of MRSA. 9. History of section. 10.Anxiety, depression, panic disorder. 11.History of THC. 12.FULL CODE. RECOMMENDATIONS AND DISCUSSION: Continue current medications, management and symptomatic treatment. Repeat labs in the morning. Closely follow with surgery. Further recommendations to follow. MMODL / IJN: [id number] / MTDD
[2021-03-11 19:22] LABS: ALT 401 U/L (4-34); AST 178 U/L (14-36); African American GFR (CKD) >90 (>60 ml/min/1.73 sqM); Albumin 3.9 g/dL (3.5-5.0); Albumin/Globulin Ratio 1.5; Alkaline Phosphatase 128 U/L (38-126); Anion Gap 10 mmol/L; Blood Urea Nitrogen 8 mg/dL (7-17); Calcium 9.4 mg/dL (8.4-10.2); Carbon Dioxide 22 mmol/L (22-30); Chloride 107 mmol/L (98-107); Globulin 2.6 g/dL; Glucose 166 mg/dL (74-99); Non-African American GFR(CKD) >90 (>60 ml/min/1.73 sqM); Sodium 139 mmol/L (137-145); Total Bilirubin 0.5 mg/dL (0.2-1.3); Total Protein 6.5 g/dL (6.3-8.2)
[2021-03-12] MEDS: KETOROLAC 15 MG/ML 1 ML VIAL IVP SCH ×3 (00:45→13:05)
[2021-03-12] MEDS: ACETAMINOPHEN TAB 325 MG TAB PO SCH ×3 (00:46→13:05)
[2021-03-12] MEDS: SODIUM CHLORIDE 0.9% 1,000 ML IV SCH (05:41)
[2021-03-12 07:51] VITALS: BP 106/64; PULSE 68; RESP 15; TEMP 98.4
[2021-03-12] MEDS ORDERED: ENOXAPARIN 30 MG/0.3 ML SYRINGE SQ SCH (09:00)
--- NOTE | 2021-03-12 11:08 | P.PN ---
Subjective Progress Note Date: 03/12/21 Principal diagnosis: Cholecystitis Patient doing well today. Quite anxious to go home. Tolerating diet. Morning labs pending. Objective - Vital Signs Vital signs: Vital Signs Temp 98.4 F 03/12/21 07:00 Pulse 68 03/12/21 07:00 Resp 15 03/12/21 07:00 BP 106/64 03/12/21 07:00 Pulse Ox 98 03/12/21 07:00 Intake & Output 03/11/21 03/12/21 03/12/21 18:59 06:59 18:59 Intake Total 1530 1950 200 Output Total 5 Balance 1525 1950 200 Weight 62.14 kg Intake: IV 1350 Intake, IV Titration 1200 Amount Sodium Chloride 0.9% 1, 1200 000 ml @ 100 mls/hr IV . Q10H ARCENIO Rx#:[id number] Oral 180 750 200 Output: Estimated Blood Loss 5 Other: Voiding Method Toilet Toilet Toilet # Voids 1 3 - Exam Abdomen: Soft, nondistended, incisions clean and dry - Labs CBC & Chem 7: 03/11/21 06:10 03/11/21 18:26 Labs: Abnormal Lab Results - Last 24 Hours (Table) 03/11/21 Range/Units 18:26 Glucose 166 H (74-99) mg/dL AST 178 H (14-36) U/L ALT 401 H (4-34) U/L Alkaline Phosphatase 128 H (38-126) U/L Assessment and Plan (1) Cholelithiasis Narrative/Plan: Await morning labs. Anticipate discharge today. Repeat labs and follow-up with Dr. Salas post discharge. Current Visit: Yes Status: Acute Code(s): K80.20 - CALCULUS OF GALLBLADDER W/O CHOLECYSTITIS W/O OBSTRUCTION SNOMED Code(s): 072079004
[2021-03-12 11:57] LABS: Basophils # (A) 0.02 X 10*3/uL (0.00-0.10); Basophils % (A) 0.3 %; Eosinophils # (A) 0.06 X 10*3/uL (0.04-0.35); Eosinophils % (A) 0.8 %; HCT 38.4 % (37.2-46.3); HGB 12.2 g/dL (12.0-15.0); Lymphocytes # (A) 1.55 X 10*3/uL (0.90-5.00); Lymphocytes % (A) 19.7 %; MCHC 31.8 g/dL (32.0-37.0); MCV 91.4 fL (80.0-97.0); Mean Platelet Volume 12.3 fL (9.5-12.2); Monocytes # (A) 0.42 X 10*3/uL (0.20-1.00); Monocytes % (A) 5.3 %; Neutrophils # (A) 5.81 X 10*3/uL (1.80-7.70); Neutrophils % (A) 73.6 %; Platelet Count 194 X 10*3/uL (140-440); RDW 12.8 % (11.5-14.5); WBC 7.88 X 10*3/uL (4.50-10.00)
--- NOTE | 2021-03-12 12:54 | DS ---
DISCHARGE SUMMARY DATE OF SERVICE: 03/12/2021 FINAL DIAGNOSES: 1. Abdominal pain with possible acute cholelithiasis and choledocholithiasis, status post laparoscopic cholecystectomy. 2. Elevated bilirubin. 3. Elevated AST/ALT, alkaline phosphatase. 4. Hypochloremia. 5. History of asthma. 6. History of low blood pressure. 7. History of MRSA. 8. History of section. 9. Anxiety, depression, panic disorder. 10.History of THC. 11.FULL CODE. DISCHARGE DISPOSITION: Patient will be discharged in stable condition with guarded prognosis after clearance from surgery. HISTORY OF PRESENT ILLNESS: This 25-year-old woman with a past medical history of multiple medical problems was admitted with abdominal pain. Patient had features of cholelithiasis and choledocholithiasis. Patient underwent an MRCP and subsequently robotic assisted laparoscopic cholecystectomy by Dr. Arthur. Patient improved significantly. The LFTs are slightly elevated. Dr. Smith evaluated the patient. If the LFTs are of diminishing trends or even at the same level, the patient could be discharged home with the outpatient followup. On exam, vitals signs stable. Cardiovascular: S1, S2. Abdomen soft, status post surgery. Nervous system: No focal deficits. Labs are reviewed. DISCHARGE ADVICE AND MEDICATIONS: 1. Diet is cardiac, soft as tolerated. 2. Activity limited until followup. 3. Follow up with Dr. Yanick Laguna in 1 2 days. 4. CBC, CMP. 5. Follow up with Dr. Arthur and Gastroenterology as recommended. DISCHARGE MEDICATIONS: 1. Hydrocortisone cream as before. 2. Zofran p.r.n. as before. 3. Gas-X p.r.n. 4. Motrin p.r.n. 5. Tylenol p.r.n. Once again the patient discharged in stable condition with guarded prognosis. MMODL / IJN: [id number] /
[2021-03-12 13:22] LABS: ALT 400 U/L (4-34); AST 173 U/L (14-36); African American GFR (CKD) >90 (>60 ml/min/1.73 sqM); Albumin 3.6 g/dL (3.5-5.0); Albumin/Globulin Ratio 1.3; Alkaline Phosphatase 128 U/L (38-126); Anion Gap 8 mmol/L; Blood Urea Nitrogen 9 mg/dL (7-17); Calcium 9.2 mg/dL (8.4-10.2); Carbon Dioxide 25 mmol/L (22-30); Chloride 106 mmol/L (98-107); Globulin 2.8 g/dL; Glucose 96 mg/dL (74-99); Non-African American GFR(CKD) >90 (>60 ml/min/1.73 sqM); Potassium 4.3 mmol/L (3.5-5.1); Sodium 139 mmol/L (137-145); Total Bilirubin 0.5 mg/dL (0.2-1.3); Total Protein 6.4 g/dL (6.3-8.2)
== END 2021-03-12 14:43 | disposition home or self-care (01) | DRG 418 ==
LOC: EC 15:45 → 6NMEDSUR 18:59 → OBSVTOIN 03-11 17:07
PROVIDERS: ADMIT Internal Medicine; ATTEND Internal Medicine
PROC: 8E0W4CZ Robotic Assisted Procedure of Trunk Region, Percutaneous Endoscopic Approach (ICD-10-PCS; 2021-03-11)
PROC: BF50200 Other Imaging of Bile Ducts using Fluorescing Agent, Indocyanine Green Dye, Intraoperative (ICD-10-PCS; 2021-03-11)
PROC: 0FT44ZZ Resection of Gallbladder, Percutaneous Endoscopic Approach (ICD-10-PCS; principal; 2021-03-11 13:40)
DX: K80.60 Calculus of gallbladder and bile duct with cholecystitis, unspecified, without obstruction (principal); Z16.24 Resistance to multiple antibiotics; F41.0 Panic disorder [episodic paroxysmal anxiety]; F32.9 Major depressive disorder, single episode, unspecified; E87.8 Other disorders of electrolyte and fluid balance, not elsewhere classified; F41.1 Generalized anxiety disorder; J44.9 Chronic obstructive pulmonary disease, unspecified; Z86.14 Personal history of Methicillin resistant Staphylococcus aureus infection; Z98.891 History of uterine scar from previous surgery; R74.01 Elevation of levels of liver transaminase levels; R74.8 Abnormal levels of other serum enzymes; R79.89 Other specified abnormal findings of blood chemistry
CPT/HCPCS: 36415; 74181; 76705; 80053; 81001; 81025; 82150; 83605; 83690; 85025; 85610; 85730; 88304; 96361; 96374; 96375; 99285

== ENCOUNTER → 2021-03-15 | Outpatient (CLI) | payer MEDICAID ==
[2021-03-15 18:54] LABS: Basophils # (A) 0.05 X 10*3/uL (0.00-0.10); Basophils % (A) 0.8 %; Eosinophils # (A) 0.14 X 10*3/uL (0.04-0.35); Eosinophils % (A) 2.2 %; HCT 41.6 % (37.2-46.3); HGB 13.2 g/dL (12.0-15.0); Lymphocytes # (A) 1.27 X 10*3/uL (0.90-5.00); Lymphocytes % (A) 19.8 %; MCH 28.6 pg (27.0-32.0); MCHC 31.7 g/dL (32.0-37.0); MCV 90.2 fL (80.0-97.0); Mean Platelet Volume 12.4 fL (9.5-12.2); Monocytes # (A) 0.39 X 10*3/uL (0.20-1.00); Monocytes % (A) 6.1 %; Neutrophils # (A) 4.55 X 10*3/uL (1.80-7.70); Neutrophils % (A) 70.8 %; Platelet Count 251 X 10*3/uL (140-440); RBC 4.61 X 10*6/uL (4.10-5.20); RDW 12.4 % (11.5-14.5); WBC 6.42 X 10*3/uL (4.50-10.00)
[2021-03-16 01:57] LABS: Albumin 4.8 g/dL (3.80-4.90); Albumin/Globulin Ratio 1.71 (1.60-3.17); Anion Gap 9.4 mmol/L (4.00-12.00); BUN/Creat Ratio 11.11 Ratio (12.00-20.00); Calcium 9.8 mg/dL (8.7-10.3); Carbon Dioxide 26.6 mmol/L (21.6-31.8); Globulin 2.8 g/dL (1.6-3.3); Non-African American GFR(CKD) 88.9 (60.0-200.0); Potassium 4.2 mmol/L (3.5-5.5); Total Bilirubin 0.7 mg/dL (0.2-1.2); Total Protein 7.6 g/dL (6.2-8.2)
== END | disposition home or self-care (01) ==
LOC: LABWHC1 13:04
PROVIDERS: ATTEND Hospitalist
DX: R94.5 Abnormal results of liver function studies (principal)
CPT/HCPCS: 36415; 80053; 85025

== ENCOUNTER → 2021-03-24 | Outpatient (CLI) | payer MEDICAID ==
[2021-03-26 01:08] LABS: Albumin 4.7 g/dL (3.80-4.90); Albumin/Globulin Ratio 1.74 (1.60-3.17); Anion Gap 14.5 mmol/L (4.00-12.00); BUN/Creat Ratio 12.22 Ratio (12.00-20.00); Calcium 10.1 mg/dL (8.7-10.3); Carbon Dioxide 23.5 mmol/L (21.6-31.8); Globulin 2.7 g/dL (1.6-3.3); Non-African American GFR(CKD) 88.9 (60.0-200.0); Potassium 4.3 mmol/L (3.5-5.5); Total Bilirubin 0.5 mg/dL (0.3-1.2); Total Protein 7.4 g/dL (6.2-8.2)
== END | disposition home or self-care (01) ==
LOC: LABWHC1 12:44
PROVIDERS: ATTEND Surgery Plastic and Reconstructive Surgery
DX: K80.50 Calculus of bile duct without cholangitis or cholecystitis without obstruction (principal)
CPT/HCPCS: 36415; 80053

== ENCOUNTER → 2021-05-12 | Outpatient (CLI) | payer MEDICAID | END | disposition home or self-care (01) | LOC: LABWHC1 09:01 | PROVIDERS: ATTEND Obstetrics & Gynecology | DX: N92.5 Other specified irregular menstruation (principal) | CPT/HCPCS: 36415; 84702 ==

== ENCOUNTER → 2021-05-14 | Outpatient (CLI) | payer MEDICAID | END | disposition home or self-care (01) | LOC: LABWHC1 09:31 | PROVIDERS: ATTEND Obstetrics & Gynecology | DX: N92.5 Other specified irregular menstruation (principal) | CPT/HCPCS: 36415; 84702 ==

== ENCOUNTER 2021-05-30 17:43 | Emergency (ER) | payer MEDICAID ==
[2021-05-30] MEDS ORDERED: SODIUM CHLORIDE 0.9% 1,000 ML IV STA (20:50)
[2021-05-30] MEDS ORDERED: METOCLOPRAMIDE 5 MG/ML 2 ML VIAL IVP STA (20:53)
[2021-05-30] MEDS ORDERED: diphenhydrAMINE 50 MG/ML 1 ML VIAL IVP STA (20:53)
[2021-05-30] MEDS ORDERED: ACETAMINOPHEN TAB 500 MG TAB PO STA (20:53)
--- NOTE | 2021-05-30 20:55 | ED ---
General Adult HPI - General Chief complaint: Dizziness Stated complaint: 8wks preg/Vomiting/Cough/Dizziness Time Seen by Provider: 05/30/21 20:26 Source: patient Mode of arrival: ambulatory Limitations: no limitations - History of Present Illness Initial comments: 25-year-old female currently 8 weeks presents to the emergency room for not feeling well. Patient states she has been nauseous and vomiting. Patient also has had a cough and congestion. Patient has had this for 4 days now. She has had 3 negative [place] virus tests in that time. No fevers. Patient states that she tried to make an appointment with her primary care but could not get in. States she does not know what she can take as she is .Patient has no other complaints at this time including shortness of breath, chest pain, abdominal pain, nausea or vomiting, headache, or visual changes. - Related Data Home Medications Medication Instructions Recorded Confirmed No Known Home Medications 05/30/21 05/30/21 Allergies Allergy/AdvReac Type Severity Reaction Status Date / Time sulfamethoxazole Allergy Rash/Hives Verified 05/30/21 21:25 [From Bactrim] trimethoprim [From Bactrim] Allergy Rash/Hives Verified 05/30/21 21:25 Review of Systems ROS Statement: Those systems with pertinent positive or pertinent negative responses have been documented in the HPI. ROS Other: All systems not noted in ROS Statement are negative. Past Medical History Past Medical History: Asthma Additional Past Medical History / Comment(s): low blood pressure History of Any Multi-Drug Resistant Organisms: MRSA Date of last positivie culture/infection: 2010 MDRO Source:: at waist line Past Surgical History: Section, Cholecystectomy, Ear Surgery Past Anesthesia/Blood Transfusion Reactions: No Reported Reaction Past Psychological History: Anxiety, Depression, Panic Disorder Smoking Status: Never smoker, Vaper Past Alcohol Use History: Occasional Past Drug Use History: Marijuana - Past Family History Mother Additional Family Medical History / Comment(s): alcohol addiction General Exam Limitations: no limitations General appearance: alert, in no apparent distress Head exam: Present: atraumatic Eye exam: Present: normal appearance, PERRL, EOMI. Absent: scleral icterus, conjunctival injection ENT exam: Present: normal exam, mucous membranes moist Neck exam: Present: normal inspection, full ROM. Absent: tenderness Respiratory exam: Present: normal lung sounds bilaterally. Absent: respiratory distress, wheezes Cardiovascular Exam: Present: regular rate, normal rhythm, normal heart sounds GI/Abdominal exam: Present: soft, normal bowel sounds. Absent: distended, tenderness Neurological exam: Present: alert Course Vital Signs 05/30/21 05/30/21 19:31 21:48 Temperature 97.6 F 98.3 F Pulse Rate 75 64 Respiratory 20 18 Rate Blood Pressure 106/64 112/87 O2 Sat by Pulse 99 100 Oximetry Medical Decision Making - Medical Decision Making Vitals are stable. Patient is well-appearing. CBC CMP unremarkable. Urinalysis does not show any evidence of infection. Chest x-ray reveals a normal chest. No change. Reevaluated, feeling better. At this time patient is stable for outpatient follow-up. Will return here for any worsening symptoms. - Lab Data Result diagrams: 05/30/21 21:06 05/30/21 21:06 Lab Results 05/30/21 05/30/21 05/30/21 Range/Units 21:06 21:06 21:06 WBC 7.1 (3.8-10.6) k/uL RBC 4.51 (3.80-5.40) m/uL Hgb 13.7 (11.4-16.0) gm/dL Hct 38.9 (34.0-46.0) % MCV 86.4 (80.0-100.0) fL MCH 30.3 (25.0-35.0) pg MCHC 35.1 (31.0-37.0) g/dL RDW 12.5 (11.5-15.5) % Plt Count 231 (150-450) k/uL MPV 8.6 Neutrophils % 68 % Lymphocytes % 21 % Monocytes % 6 % Eosinophils % 4 % Basophils % 1 % Neutrophils # 4.8 (1.3-7.7) k/uL Lymphocytes # 1.5 (1.0-4.8) k/uL Monocytes # 0.4 (0-1.0) k/uL Eosinophils # 0.3 (0-0.7) k/uL Basophils # 0.0 (0-0.2) k/uL Sodium 136 L (137-145) mmol/L Potassium 3.7 (3.5-5.1) mmol/L Chloride 100 (98-107) mmol/L Carbon Dioxide 25 (22-30) mmol/L Anion Gap 11 mmol/L BUN 5 L (7-17) mg/dL Creatinine 0.53 (0.52-1.04) mg/dL Est GFR (CKD-EPI)AfAm >90 (>60 ml/min/1.73 sqM) Est GFR (CKD-EPI)NonAf >90 (>60 ml/min/1.73 sqM) Glucose 93 (74-99) mg/dL Calcium 9.6 (8.4-10.2) mg/dL Total Bilirubin 0.3 (0.2-1.3) mg/dL AST 42 H (14-36) U/L ALT 85 H (4-34) U/L Alkaline Phosphatase 71 (38-126) U/L Total Protein 8.3 H (6.3-8.2) g/dL Albumin 4.8 (3.5-5.0) g/dL Urine Color Light Yellow Urine Appearance Clear (Clear) Urine pH 7.0 (5.0-8.0) Ur Specific [place] 1.004 (1.001-1.035) Urine Protein Negative (Negative) Urine Glucose (UA) Negative (Negative) Urine Ketones Negative (Negative) Urine Blood Negative (Negative) Urine Nitrite Negative (Negative) Urine Bilirubin Negative (Negative) Urine Urobilinogen <2.0 (<2.0) mg/dL Ur Leukocyte Esterase Negative (Negative) Disposition Clinical Impression: Nausea, Cough Disposition: HOME SELF-CARE Condition: Good Instructions (If sedation given, give patient instructions): Nausea and Vomiting in (ED), Cold Symptoms (ED) Additional Instructions: Please follow up with primary care in 1-2 days. Take Tylenol or Benadryl as needed. Return to the emergency room for any worsening symptoms. Is patient prescribed a controlled substance at d/c from ED?: No Referrals: Yanick Laguna DO [Primary Care Provider] - 1-2 days Time of Disposition: 22:23
[2021-05-30 21:15] LABS: Appearance,Urine Clear (Clear); Bilirubin,Urine Negative (Negative); Blood,Urine Negative (Negative); Color,Urine Light Yellow; Glucose,Urine (UA) Negative (Negative); Ketones,Urine Negative (Negative); Leukocyte Esterase,Urine Negative (Negative); Nitrite,Urine Negative (Negative); Protein,Urine Negative (Negative); Specific Gravity,Urine 1.004 (1.001-1.035); Urobilinogen,Urine <2.0 mg/dL (<2.0)
[2021-05-30 21:17] LABS: Basophils % (A) 1 %; Eosinophils # (A) 0.3 k/uL (0-0.7); Eosinophils % (A) 4 %; HCT 38.9 % (34.0-46.0); HGB 13.7 gm/dL (11.4-16.0); Lymphocytes # (A) 1.5 k/uL (1.0-4.8); Lymphocytes % (A) 21 %; MCH 30.3 pg (25.0-35.0); MCHC 35.1 g/dL (31.0-37.0); MCV 86.4 fL (80.0-100.0); Mean Platelet Volume 8.6; Monocytes # (A) 0.4 k/uL (0-1.0); Monocytes % (A) 6 %; Neutrophils # (A) 4.8 k/uL (1.3-7.7); Neutrophils % (A) 68 %; Platelet Count 231 k/uL (150-450); RBC 4.51 m/uL (3.80-5.40); RDW 12.5 % (11.5-15.5); WBC 7.1 k/uL (3.8-10.6)
[2021-05-30 21:25] LABS: ALT 85 U/L (4-34); AST 42 U/L (14-36); African American GFR (CKD) >90 (>60 ml/min/1.73 sqM); Albumin 4.8 g/dL (3.5-5.0); Alkaline Phosphatase 71 U/L (38-126); Anion Gap 11 mmol/L; Blood Urea Nitrogen 5 mg/dL (7-17); Calcium 9.6 mg/dL (8.4-10.2); Carbon Dioxide 25 mmol/L (22-30); Chloride 100 mmol/L (98-107); Glucose 93 mg/dL (74-99); Non-African American GFR(CKD) >90 (>60 ml/min/1.73 sqM); Potassium 3.7 mmol/L (3.5-5.1); Sodium 136 mmol/L (137-145); Total Bilirubin 0.3 mg/dL (0.2-1.3); Total Protein 8.3 g/dL (6.3-8.2)
[2021-05-30 21:51] VITALS: RESP 18; TEMP 98.3
--- NOTE | 2021-05-30 21:53 | XR ---
EXAMINATION TYPE: XR chest 2V DATE OF EXAM: 05/30/2021 COMPARISON: NONE HISTORY: Cough. Chest pain TECHNIQUE: 2 views FINDINGS: Heart and mediastinum are normal. Lungs are clear. Diaphragm is normal. Bony thorax is inta ct. IMPRESSION: Normal chest. No change.
[2021-05-30 22:38] VITALS: BP 100/63; PULSE 70
== END 2021-05-30 22:37 | disposition home or self-care (01) ==
LOC: EC 17:43
DX: O21.9 Vomiting of pregnancy, unspecified (principal); O26.891 Other specified pregnancy related conditions, first trimester; O99.511 Diseases of the respiratory system complicating pregnancy, first trimester; R09.89 Other specified symptoms and signs involving the circulatory and respiratory systems; J45.909 Unspecified asthma, uncomplicated; Z88.2 Allergy status to sulfonamides; Z88.1 Allergy status to other antibiotic agents; Z3A.08 8 weeks gestation of pregnancy
CPT/HCPCS: 99284 ×2; 96374 ×2; 96375 ×2; 96361 ×2; 36415; 80053; 85025; 81003; 71046; J1200; J2765

== ENCOUNTER → 2021-06-25 | Outpatient (CLI) | payer MEDICAID ==
[2021-06-25 17:32] LABS: HGB 11.7 g/dL (12.0-15.0); MCHC 32.5 g/dL (32.0-37.0); MCV 89.1 fL (80.0-97.0); Mean Platelet Volume 11.9 fL (9.5-12.2); Platelet Count 201 X 10*3/uL (140-440); RBC 4.04 X 10*6/uL (4.10-5.20); RDW 13.2 % (11.5-14.5); WBC 5.86 X 10*3/uL (4.50-10.00)
[2021-06-25 21:23] LABS: Uric Acid 3.6 mg/dL (2.9-7.7)
[2021-06-25 22:05] LABS: Total Protein 24 Hour,Urine 20.8 mg/dL (0.0-165.0)
[2021-06-25 22:35] LABS: Total Volume 24 Hour,Urine 600 mL
[2021-06-25 23:58] LABS: Hepatitis B Surface Antigen Nonreactive (Nonreactive)
[2021-06-27 13:59] LABS: HIV 2 AB Non-Reactive (Non-Reactive); HIV AB P24 Non-Reactive (Non-Reactive); HIV P24 AG Non-Reactive (Non-Reactive)
== END | disposition home or self-care (01) ==
LOC: LABWHC1 08:39
PROVIDERS: ATTEND Obstetrics & Gynecology
DX: Z34.81 Encounter for supervision of other normal pregnancy, first trimester (principal)
CPT/HCPCS: 36415; 81050; 82575; 84156; 84450; 84460; 84550; 85027; 86762; 86780; 86850; 86900; 86901; 87340; 87390

== ENCOUNTER 2021-07-13 11:54 | Emergency (ER) | payer MEDICAID ==
[2021-07-13] MEDS ORDERED: SODIUM CHLORIDE 0.9% 50 ML IVPB ONE (14:30)
[2021-07-13] MEDS ORDERED: CASIRIVIMAB (REGN10933) (EUA) 600 MG, IMDEVIMAB (REGN10987) (EUA) 600 MG in SODIUM CHLO... IVPB ONE (14:30)
[2021-07-13 14:54] VITALS: RESP 18
--- NOTE | 2021-07-13 14:55 | ED ---
URI HPI - General Chief Complaint: Upper Respiratory Infection Stated Complaint: covid+/antibodies Time Seen by Provider: 07/13/21 13:55 Source: patient, RN notes reviewed Mode of arrival: ambulatory Limitations: no limitations - History of Present Illness Initial Comments: 25-year-old female presents emergency Department chief complaint of covid19. Jacobo arzola states she tested positive at work yesterday at [facility]. Patient states that symptoms started yesterday she's had no prior vaccine. She is currently and is recommended to come emergency from for monoclonal antibodies. She has mild cough congestion bodyaches nasal congestion. - Related Data Home Medications Medication Instructions Recorded Confirmed No Known Home Medications 05/30/21 05/30/21 Allergies Allergy/AdvReac Type Severity Reaction Status Date / Time sulfamethoxazole Allergy Rash/Hives Verified 07/13/21 12:58 [From Bactrim] trimethoprim [From Bactrim] Allergy Rash/Hives Verified 07/13/21 12:58 Review of Systems ROS Statement: Those systems with pertinent positive or pertinent negative responses have been documented in the HPI. ROS Other: All systems not noted in ROS Statement are negative. Past Medical History Past Medical History: Asthma Additional Past Medical History / Comment(s): low blood pressure History of Any Multi-Drug Resistant Organisms: MRSA Date of last positivie culture/infection: 2010 MDRO Source:: at waist line Past Surgical History: Section, Cholecystectomy, Ear Surgery Past Anesthesia/Blood Transfusion Reactions: No Reported Reaction Past Psychological History: Anxiety, Depression, Panic Disorder Smoking Status: Never smoker, Vaper Past Alcohol Use History: None Reported, Occasional Past Drug Use History: Marijuana - Past Family History Mother Additional Family Medical History / Comment(s): alcohol addiction General Exam Limitations: no limitations General appearance: alert, in no apparent distress Head exam: Present: atraumatic, normocephalic, normal inspection Eye exam: Present: normal appearance, PERRL, EOMI. Absent: scleral icterus, conjunctival injection, periorbital swelling ENT exam: Present: normal exam, normal oropharynx, mucous membranes moist Neck exam: Present: normal inspection, full ROM. Absent: tenderness, meningismus, lymphadenopathy Respiratory exam: Present: normal lung sounds bilaterally. Absent: respiratory distress, wheezes, rales, rhonchi, stridor Cardiovascular Exam: Present: regular rate, normal rhythm, normal heart sounds. Absent: systolic murmur, diastolic murmur, rubs, gallop, clicks GI/Abdominal exam: Present: soft, normal bowel sounds. Absent: distended, tenderness, guarding, rebound, rigid Course Vital Signs 07/13/21 12:58 Temperature 98.9 F Pulse Rate 101 H Respiratory 20 Rate Blood Pressure 110/74 O2 Sat by Pulse 99 Oximetry Medical Decision Making - Medical Decision Making Patient received monoclonal antibodies for COVID-19 will be discharged in stable condition return parameters were discussed. Disposition Clinical Impression: COVID-19 Disposition: HOME SELF-CARE Condition: Stable Instructions (If sedation given, give patient instructions): Coronavirus Disease 2019 (COVID-19) Additional Instructions: Please return to the Emergency Department if symptoms worsen or any other concerns. Is patient prescribed a controlled substance at d/c from ED?: No Referrals: Yanick Laguna DO [Primary Care Provider] - 1-2 days Time of Disposition: 14:55
[2021-07-13] MEDS ORDERED: SODIUM CHLORIDE 0.9% 1,000 ML IV ONE (15:08)
[2021-07-13 16:44] VITALS: BP 106/60; PULSE 84; TEMP 98.4
== END 2021-07-13 16:10 | disposition home or self-care (01) ==
LOC: EC 11:54
DX: U07.1 COVID-19 (principal); J45.909 Unspecified asthma, uncomplicated; Z88.2 Allergy status to sulfonamides
CPT/HCPCS: 99283; 96360; Q0244; 96361; 96365; 99284

== ENCOUNTER 2021-07-22 14:37 | Emergency (ER) | payer MEDICAID ==
[2021-07-22] MEDS ORDERED: SODIUM CHLORIDE 0.9% 2,000 ML IV ONE (19:36)
[2021-07-22] MEDS ORDERED: ACETAMINOPHEN TAB 325 MG TAB PO STA (20:01)
--- NOTE | 2021-07-22 20:02 | ED ---
General Adult HPI - General Chief complaint: Syncope Stated complaint: Fainted,Dizziness Time Seen by Provider: 07/22/21 19:36 Source: patient, RN notes reviewed Mode of arrival: ambulatory Limitations: no limitations - History of Present Illness Initial comments: 25-year-old female presents emergency Department chief complaint of syncope. Patient states that she isn't sore started feeling very flushed feeling, lightheaded and passed out. Patient's significant other in the room states that she passed out attempted to get back up and fell again. She states that she had mild headache resolved headache return. No vomiting no chest pain no palpitat ions states she's had this happen the past. Patient states that she recently had covid 19 10 days ago - Related Data Home Medications Medication Instructions Recorded Confirmed No Known Home Medications 05/30/21 07/13/21 Allergies Allergy/AdvReac Type Severity Reaction Status Date / Time sulfamethoxazole Allergy Rash/Hives Verified 07/22/21 16:41 [From Bactrim] trimethoprim [From Bactrim] Allergy Rash/Hives Verified 07/22/21 16:41 Review of Systems ROS Statement: Those systems with pertinent positive or pertinent negative responses have been documented in the HPI. ROS Other: All systems not noted in ROS Statement are negative. Past Medical History Past Medical History: Asthma Additional Past Medical History / Comment(s): low blood pressure History of Any Multi-Drug Resistant Organisms: MRSA Date of last positivie culture/infection: 2010 MDRO Source:: at waist line Past Surgical History: Section, Cholecystectomy, Ear Surgery Past Anesthesia/Blood Transfusion Reactions: No Reported Reaction Past Psychological History: Anxiety, Depression, Panic Disorder Smoking Status: Never smoker, Vaper Past Alcohol Use History: None Reported, Occasional Past Drug Use History: Marijuana - Past Family History Mother Additional Family Medical History / Comment(s): alcohol addiction General Exam Limitations: no limitations General appearance: alert, in no apparent distress Head exam: Present: atraumatic, normocephalic, normal inspection Eye exam: Present: normal appearance, PERRL, EOMI. Absent: scleral icterus, conjunctival injection, periorbital swelling ENT exam: Present: normal exam, normal oropharynx, mucous membranes moist Neck exam: Present: normal inspection, full ROM. Absent: tenderness, meningismus, lymphadenopathy Respiratory exam: Present: normal lung sounds bilaterally. Absent: respiratory distress, wheezes, rales, rhonchi, stridor Cardiovascular Exam: Present: regular rate, normal rhythm, normal heart sounds. Absent: systolic murmur, diastolic murmur, rubs, gallop, clicks GI/Abdominal exam: Present: soft, normal bowel sounds. Absent: distended, tenderness, guarding, rebound, rigid Neurological exam: Present: alert, oriented X3, CN II-XII intact, reflexes normal. Absent: motor sensory deficit Skin exam: Present: warm, dry, intact, normal color. Absent: rash Course Vital Signs 07/22/21 07/22/21 07/22/21 16:36 21:41 21:42 Temperature 97.8 F Pulse Rate 87 67 Respiratory 16 15 16 Rate Blood Pressure 102/64 99/63 Blood Pressure 97/68 [Left Arm Sitting] Blood Pressure 105/73 [Left Arm Standing] Blood Pressure 99/69 [Left Arm Supine] O2 Sat by Pulse 98 100 Oximetry Medical Decision Making - Medical Decision Making 25-year-old female presented for syncopal episode. Patient is well-hydrated, orthostatics within normal limits. heart tones within normal limits. Patient feels improved. We discussed CT versus no CT. Patient is comfortable no CT return for any worsening change in symptoms. - Lab Data Result diagrams: 07/22/21 21:05 07/22/21 21:05 Lab Results 07/22/21 07/22/21 07/22/21 Range/Units 21:05 21:05 21:41 WBC 7.4 (3.8-10.6) k/uL RBC 4.16 (3.80-5.40) m/uL Hgb 12.4 (11.4-16.0) gm/dL Hct 36.5 (34.0-46.0) % MCV 87.6 (80.0-100.0) fL MCH 29.9 (25.0-35.0) pg MCHC 34.1 (31.0-37.0) g/dL RDW 13.2 (11.5-15.5) % Plt Count 249 (150-450) k/uL MPV 8.9 Sodium 136 L (137-145) mmol/L Potassium 4.3 (3.5-5.1) mmol/L Chloride 102 (98-107) mmol/L Carbon Dioxide 23 (22-30) mmol/L Anion Gap 11 mmol/L BUN 5 L (7-17) mg/dL Creatinine 0.44 L (0.52-1.04) mg/dL Est GFR (CKD-EPI)AfAm >90 (>60 ml/min/1.73 sqM) Est GFR (CKD-EPI)NonAf >90 (>60 ml/min/1.73 sqM) Glucose 106 H (74-99) mg/dL Calcium 9.5 (8.4-10.2) mg/dL Total Bilirubin 0.4 (0.2-1.3) mg/dL AST 58 H (14-36) U/L ALT 59 H (4-34) U/L Alkaline Phosphatase 62 (38-126) U/L Total Protein 7.5 (6.3-8.2) g/dL Albumin 4.0 (3.5-5.0) g/dL Urine Color Yellow Urine Appearance Clear (Clear) Urine pH 6.0 (5.0-8.0) Ur Specific [place] 1.009 (1.001-1.035) Urine Protein Negative (Negative) Urine Glucose (UA) Negative (Negative) Urine Ketones Negative (Negative) Urine Blood Negative (Negative) Urine Nitrite Negative (Negative) Urine Bilirubin Negative (Negative) Urine Urobilinogen <2.0 (<2.0) mg/dL Ur Leukocyte Esterase Trace H (Negative) Urine RBC 1 (0-5) /hpf Urine WBC 4 (0-5) /hpf Ur Squamous Epith Cells 1 (0-4) /hpf Urine Bacteria Occasional H (None) /hpf Urine Mucus Rare H (None) /hpf Disposition Clinical Impression: Syncope Disposition: HOME SELF-CARE Condition: Stable Instructions (If sedation given, give patient instructions): Syncope (ED) Additional Instructions: Please return to the Emergency Department if symptoms worsen or any other concerns. Is patient prescribed a controlled substance at d/c from ED?: No Referrals: Yanick Laguna DO [Primary Care Provider] - 1-2 days Time of Disposition: 22:19
[2021-07-22 21:15] LABS: HCT 36.5 % (34.0-46.0); HGB 12.4 gm/dL (11.4-16.0); MCH 29.9 pg (25.0-35.0); MCHC 34.1 g/dL (31.0-37.0); MCV 87.6 fL (80.0-100.0); Mean Platelet Volume 8.9; Platelet Count 249 k/uL (150-450); RBC 4.16 m/uL (3.80-5.40); RDW 13.2 % (11.5-15.5); WBC 7.4 k/uL (3.8-10.6)
[2021-07-22 21:43] LABS: ALT 59 U/L (4-34); AST 58 U/L (14-36); African American GFR (CKD) >90 (>60 ml/min/1.73 sqM); Alkaline Phosphatase 62 U/L (38-126); Anion Gap 11 mmol/L; Blood Urea Nitrogen 5 mg/dL (7-17); Calcium 9.5 mg/dL (8.4-10.2); Carbon Dioxide 23 mmol/L (22-30); Chloride 102 mmol/L (98-107); Glucose 106 mg/dL (74-99); Non-African American GFR(CKD) >90 (>60 ml/min/1.73 sqM); Potassium 4.3 mmol/L (3.5-5.1); Sodium 136 mmol/L (137-145); Total Bilirubin 0.4 mg/dL (0.2-1.3); Total Protein 7.5 g/dL (6.3-8.2)
[2021-07-22 22:13] LABS: Appearance,Urine Clear (Clear); Bacteria,Urine Occasional /hpf; Bilirubin,Urine Negative (Negative); Blood,Urine Negative (Negative); Color,Urine Yellow; Glucose,Urine (UA) Negative (Negative); Ketones,Urine Negative (Negative); Leukocyte Esterase,Urine Trace (Negative); Mucus,Urine Rare /hpf; Nitrite,Urine Negative (Negative); Protein,Urine Negative (Negative); RBC,Urine 1 /hpf (0-5); Specific Gravity,Urine 1.009 (1.001-1.035); Squamous Epithelial Cell,Urine 1 /hpf (0-4); Urobilinogen,Urine <2.0 mg/dL (<2.0); WBC,Urine 4 /hpf (0-5)
[2021-07-22 23:40] VITALS: BP 100/58; PULSE 60; RESP 15; TEMP 98.9
== END 2021-07-22 23:30 | disposition home or self-care (01) ==
LOC: EC 14:37
DX: R55 Syncope and collapse (principal); R42 Dizziness and giddiness; J45.909 Unspecified asthma, uncomplicated; Z88.2 Allergy status to sulfonamides
CPT/HCPCS: 36415; 80053; 81001; 85027; 93005; 96360; 96361; 99284

== ENCOUNTER 2022-01-04 10:06 | Inpatient (IN) | payer MEDICAID ==
[2022-01-02 14:49] VITALS: BMI 28.3
[2022-01-04] MEDS ORDERED: CITRIC ACID-SODIUM CITRATE 15 ML CUP PO ONE (10:25)
[2022-01-04] MEDS ORDERED: LACTATED RINGERS 1,000 ML IV ONE (10:28)
[2022-01-04] MEDS ORDERED: LACTATED RINGERS 1,000 ML IV SCH (10:30)
[2022-01-04 10:44] LABS: Anisocytosis Slight; Basophils % (A) 0 %; Eosinophils # (A) 0.2 k/uL (0-0.7); Eosinophils % (A) 2 %; HCT 36.1 % (34.0-46.0); HGB 11.5 gm/dL (11.4-16.0); Lymphocytes # (A) 1.4 k/uL (1.0-4.8); Lymphocytes % (A) 11 %; MCH 25.9 pg (25.0-35.0); MCHC 31.9 g/dL (31.0-37.0); MCV 81.2 fL (80.0-100.0); Mean Platelet Volume 9.6; Monocytes # (A) 0.6 k/uL (0-1.0); Monocytes % (A) 5 %; Neutrophils # (A) 9.9 k/uL (1.3-7.7); Neutrophils % (A) 80 %; Platelet Count 233 k/uL (150-450); RBC 4.44 m/uL (3.80-5.40); RDW 16.7 % (11.5-15.5); WBC 12.3 k/uL (3.8-10.6)
--- NOTE | 2022-01-04 11:28 | P.HPOB ---
History of Present Illness H&P Date: 01/04/22 Chief Complaint: Here for repeat and tubal ligation This is a 26-year-old female 3 para 2001 EDC 01/11/2022 at 39 weeks gestation who presents today for repeat low transverse section and tubal ligation. Fetus is been active throughout the . She denies fluid leakage or vaginal bleeding. Past medical history significant for anxiety and depression, as well as asthma. Past surgical history section 2016, cholecystectomy 2020. ALLERGIES Bactrim DS to which reports a rash and hives, erythromycin to which reports GI upset, and seasonal ALLERGIES. Family history significant for asthma emphysema alcoholism depression anxiety C OPD and autism. history is significant for blood type A-, broke and received. Gonorrhea and chlamydia cultures, HIV testing, hepatitis B surface antigen, urine culture, group B strep cultures all negative. One-hour Glucola 117. On exam patient is 5 foot 2 inches, 155 pounds, vital signs are stable and she is afebrile including an admission blood pressure of 111/69. General exam is wi thin normal limits. Cervix is long thick and closed. heart rate is consistent with reactive NST. Abdomen is soft and nontender. Extremities are negative for edema. Impression: 39 week intrauterine , here for elective repeat low transverse section and tubal ligation. All questions answered. Plan: For repeat low transverse section and tubal ligation at this ti wa. All questions answered. Antibiotics given. Review of Systems Constitutional: Reports as per HPI Past Medical History Past Medical History: Asthma Additional Past Medical History / Comment(s): low blood pressure History of Any Multi-Drug Resistant Organisms: MRSA Date of last positivie culture/infection: 2010 MDRO Source:: at waist line Past Surgical History: Section, Cholecystectomy, Ear Surgery Past Anesthesia/Blood Transfusion Reactions: No Reported Reaction Past Psychological History: Anxiety, Depression, Panic Disorder Additional Psychological History / Comment(s): no current medications Smoking Status: Never smoker Past Alcohol Use History: None Reported Past Drug Use History: None Reported, Marijuana Additional Drug Use History / Comment(s): NO MARIJUANA USE AT THIS TIME - Past Family History Mother Additional Family Medical History / Comment(s): alcohol addiction Medications and Allergies Home Medications Medication Instructions Recorded Confirmed Type No Known Home Medications 05/30/21 01/04/22 History Allergies Allergy/AdvReac Type Severity Reaction Status Date / Time sulfamethoxazole Allergy Rash/Hives Verified 01/04/22 10:25 [From Bactrim] trimethoprim [From Bactrim] Allergy Rash/Hives Verified 01/04/22 10:25 Exam Vital Signs Temp Pulse Resp BP Pulse Ox 01/04/22 10:29 96.9 F L 71 16 111/69 98 Intake and Output 01/03/22 01/04/22 01/04/22 22:59 06:59 14:59 Other: Weight 70.307 kg see dictation please Results Result Diagrams: 01/04/22 10:25 Abnormal Lab Results - Last 24 Hours (Table) 01/04/22 Range/Units 10:25 WBC 12.3 H (3.8-10.6) k/uL RDW 16.7 H (11.5-15.5) % Neutrophils # 9.9 H (1.3-7.7) k/uL Assessment and Plan Assessment: 39 week intrauterine , here for repeat low transverse section and tubal ligation. All questions answered. All signs reassuring. Plan: For repeat low transverse section. Including tubal ligation with Filshie clips. Time with Patient: Less than 30
[2022-01-04] MEDS ORDERED: ONDANSETRON 4 MG/2 ML VIAL ONE (11:30)
[2022-01-04] MEDS ORDERED: OXYTOCIN 10 UNIT/ML 1 ML VIAL ONE (11:30)
[2022-01-04] MEDS ORDERED: KETOROLAC 15 MG/ML 1 ML VIAL ONE (11:30)
[2022-01-04] MEDS ORDERED: MORPHINE SULFATE (PF) 0.3 MG/0.3 ML SYR ONE (11:30)
[2022-01-04] MEDS ORDERED: NALBUPHINE 10 MG/ML (1 ML AMP) ONE (11:30)
[2022-01-04] MEDS ORDERED: fentaNYL (PF) 50 MCG/ML 2 ML AMP ONE (11:30)
[2022-01-04] MEDS ORDERED: ePHEDrine 50 MG/ML 1 ML VIAL ONE (11:30)
[2022-01-04] MEDS ORDERED: diphenhydrAMINE 50 MG/ML 1 ML VIAL IVP PRN ×2 (12:15)
[2022-01-04] MEDS ORDERED: diphenhydrAMINE 50 MG CAP PO PRN (12:15)
[2022-01-04] MEDS ORDERED: SIMETHICONE 80 MG CHEWABLE PO PRN (12:15)
[2022-01-04] MEDS ORDERED: METOCLOPRAMIDE 5 MG/ML 2 ML VIAL IVP PRN (12:15)
[2022-01-04] MEDS ORDERED: ONDANSETRON 4 MG/2 ML VIAL IVP PRN (12:15)
[2022-01-04] MEDS ORDERED: NALOXONE 0.4 MG/ML 1 ML VIAL IV PRN (12:15)
[2022-01-04] MEDS ORDERED: diphenhydrAMINE 25 MG CAP PO PRN (12:15)
[2022-01-04] MEDS ORDERED: ZOLPIDEM 5 MG TAB PO PRN (12:15)
--- NOTE | 2022-01-04 12:15 | P.PCN ---
Date of Procedure: 01/04/22 Preoperative Diagnosis: 39 week intrauterine , previous section, undesired fertility, declining . Postoperative Diagnosis: Same, liveborn male infant, normal-appearing tubes and ovaries bilaterally. Procedure(s) Performed: Repeat low transverse section, tubal ligation with Filshie clips. Anesthesia: spinal Surgeon: Cyndie Gruber Electrical Sign Wirer #1: Sharon Olivarez Estimated Blood Loss (ml): 200 IV fluids (ml): 1,000 Urine output (ml): 200 Pathology: none sent Condition: stable Disposition: PACU Operative Findings: Liveborn male infant, scores 8 and 9, 7 lbs. 12 oz., 3520 g. Normal- appearing tubes and ovaries bilaterally. Description of Procedure: Patient is brought to the operating suite where a spinal analgesia is administered without difficulty. She's placed in the dorsal supine position with left lateral uterine displacement. Antibiotics given. Najera catheter to direct drainage. Bicitra given. The appropriate timeout is performed to assure proper patient and procedural identification. Abdomen is prepped and draped in usual sterile fashion. Analgesia is checked and noted to be adequate. A low transverse skin incision is made in this is carried down through the subcutaneous tissue which is approximately 2 cm deep. The fascia is isolated, scored, extended bilaterally with curved Pinto scissors. Peritoneum is next identified and incised, there is no bowel or bladder involvement. Bladder flap is created with Metzenbaum scissors and at all times the bladder is Well from the operative field to avoid bladder and/or ureteral injury. A low transverse uterine incision is made, artificial amniorrhexis reveals clear fluid. The extended bluntly. Infant's head is delivered occiput anterior, the oropharynx, nasopharynx, and external nares were all bulb suctioned thoroughly. Patient is officially delivered of a liveborn male at 1146 hours. Umbilical cord is doubly clamped and ligated, he is handed to waiting nurses for evaluation where scores of 8 and 9 at one and 5 minutes respectively are given. Cord blood is sent to the lab for Rh- status. Placenta is delivered manually, it is inspected and noted to be intact with trivascular cord at 1147 hours. Uterus is then massaged and externalized. It is swept clean with a sterile sponge to avoid any retained products of conception. The uterus is closed in a single full-thickness stitch of 0 Vicryl with excellent reapproximation. The lower uterine segment is noted to be thin. Filshie clips are used in the isthmic portion of both tubes, with care to traverse the entire diameter of the tube into the mesal salpinx. Fimbriated ends are noted. Ovaries appear normal. No uterine defects are noted. Abdomen is suctioned with suction on guard posterior to the uterus and the uterus is gently placed back into the abdominal cavity. Bilateral gutters are inspected and cleaned. Uterine incision is nicely hemostatically intact. Peritoneum is allowed to close by secondary intention. Fascia is closed in a running stitch of 0 Vicryl with over ligation in the midline. Subcutaneous tissue is inspected, clean and dry. It is reapproximated with 3-0 Vicryl in a running stitch. 4-0 undyed Monocryl is used in a subcuticular manner for final skin closure. Steri-Strips and Mastisol are applied to the wound. Uterus is massaged for a small amount of blood. Najera is noted to be draining clear urine. Patient is brought back to recovery room in excellent condition with stable vital signs including a pulse of 82, blood pressure 112/52. Patient is requesting circumcision for her infant son.
[2022-01-04] MEDS: ACETAMINOPHEN TAB 500 MG TAB PO SCH (15:51)
[2022-01-04] MEDS: IBUPROFEN 600 MG TAB PO SCH (18:24)
[2022-01-04] MEDS ORDERED: Rhogam IMMUNE GLOBULIN 1,500 UNIT/1 ML IM ONE (18:25)
[2022-01-04] MEDS: LACTATED RINGERS 1,000 ML IV SCH (18:27)
[2022-01-05] MEDS: IBUPROFEN 600 MG TAB PO SCH ×4 (00:48→22:53)
[2022-01-05] MEDS: SENNOSIDES-DOCUSATE SODIUM 1 EACH TAB PO SCH ×3 (00:49→19:47)
[2022-01-05] MEDS: ACETAMINOPHEN TAB 500 MG TAB PO SCH ×4 (03:17→21:09)
[2022-01-05 06:25] LABS: Anisocytosis Slight; Basophils % (A) 0 %; Eosinophils # (A) 0.2 k/uL (0-0.7); Eosinophils % (A) 2 %; HCT 35.2 % (34.0-46.0); HGB 10.9 gm/dL (11.4-16.0); Lymphocytes # (A) 0.7 k/uL (1.0-4.8); Lymphocytes % (A) 7 %; MCH 25.5 pg (25.0-35.0); MCHC 30.8 g/dL (31.0-37.0); MCV 82.7 fL (80.0-100.0); Mean Platelet Volume 9.2; Monocytes # (A) 0.4 k/uL (0-1.0); Monocytes % (A) 4 %; Neutrophils # (A) 9.2 k/uL (1.3-7.7); Neutrophils % (A) 86 %; Platelet Count 175 k/uL (150-450); RBC 4.26 m/uL (3.80-5.40); WBC 10.7 k/uL (3.8-10.6)
--- NOTE | 2022-01-05 07:54 | P.PN ---
Subjective Progress Note Date: 01/05/22 Principal diagnosis: Post operative day #1 Slept well. Minimal pain. (+) flatus. No complaints Objective - Vital Signs Vital signs: Vital Signs Temp 98.1 F 01/05/22 03:22 Pulse 64 01/05/22 03:22 Resp 16 01/05/22 03:22 BP 105/64 01/05/22 03:22 Pulse Ox 99 01/04/22 15:55 FiO2 Intake & Output 01/04/22 01/05/22 01/05/22 18:59 06:59 18:59 Intake Total 1000 Output Total 600 500 Balance 400 -500 Weight 70.307 kg Intake: IV 1000 Output: Urine 300 500 Uretheral (Najera) 250 Output, Quantitative 300 Blood Loss - Constitutional General appearance: Present: average body habitus, cooperative - EENT Eyes: Present: PERRLA ENT: Present: hearing grossly normal - Respiratory Respiratory: bilateral: CTA - Cardiovascular Rhythm: regular - Gastrointestinal Gastrointestinal Comment(s): Incision clean and dry, intact, steri strips well applied. - Integumentary Integumentary: Present: normal - Neurologic Neurologic: Present: CNII-XII intact - Musculoskeletal Musculoskeletal: Present: strength equal bilaterally - Psychiatric Psychiatric: Present: A&O x's 3, appropriate affect, intact judgment & insight - Labs CBC & Chem 7: 01/05/22 06:10 Labs: Abnormal Lab Results - Last 24 Hours (Table) 01/04/22 01/05/22 Range/Units 10:25 06:10 WBC 12.3 H 10.7 H (3.8-10.6) k/uL Hgb 10.9 L (11.4-16.0) gm/dL MCHC 30.8 L (31.0-37.0) g/dL RDW 16.7 H 17.0 H (11.5-15.5) % Neutrophils # 9.9 H 9.2 H (1.3-7.7) k/uL Lymphocytes # 0.7 L (1.0-4.8) k/uL Assessment and Plan Assessment: Doing well post operative day #1 Plan: Continue routine care. Likely discharge home tomorrow. Circumcision this morning per patient's request. Time with Patient: Less than 30
--- NOTE | 2022-01-05 09:50 | P.PN ---
Progress Note - Text Date: 01/05/2022 Time: 7:08 The patient is status post section Vital signs stable VAS: 0-10 Patient has no complaints of pain. The patient incurred some minimal itching yesterday, this itching is now subsiding. Pain meds to be managed by service.
[2022-01-05 13:07] VITALS: RESP 16
[2022-01-05] MEDS: LACTATED RINGERS 1,000 ML IV SCH ×3 (19:32→21:10)
[2022-01-06 01:45] VITALS: TEMP 97.7
[2022-01-06] MEDS: ACETAMINOPHEN TAB 500 MG TAB PO SCH ×2 (04:55→05:06)
[2022-01-06] MEDS: IBUPROFEN 600 MG TAB PO SCH ×2 (06:52→08:04)
[2022-01-06] MEDS: SENNOSIDES-DOCUSATE SODIUM 1 EACH TAB PO SCH (08:19)
--- NOTE | 2022-01-06 08:20 | P.DS ---
Providers Date of admission: 01/04/22 10:06 Expected date of discharge: 01/06/22 Attending physician: Cyndie Gruber Primary care physician: Stated None Hospital Course: This is a 26-year-old female 3 para 2002 EDC 01/11/2022 at 39 weeks gestation who presented for repeat section and tubal ligation. is unremarkable, group B strep cultures negative, blood type A-. Rubella status immune. Please see dictated history and physical for details. Patient underwent a repeat low transverse section with tubal ligation under my care 2 days ago. She did well intraoperatively. She gave to a liveborn male with scores of 8 and 9 at one and 5 minutes respectively. weighed 7 lbs. 12 oz. or 3520 g estimated blood loss 200 mL's. Please see dictated operative note for details. This morning the patient is doing well. Circumcision has been performed. Patient is voiding, ambulating, passing flatus without difficulties. Pain is well managed. Fundus is firm, midline, symmetric, 18 week size. Incision is clean and dry, intact, Steri-Strips applied. Artemus is doing well, circumcision has been performed. Patient is judged to be in good condition for discharge home. Patient will follow-up with me in the office in 2 weeks for incision check. I have reminded her no intercourse, tampons or douching. She will use [id number] ibuprofen products as needed for pain, 600 mg every 6 hours, to alternate with extra strength Tylenol if needed. She will call with any fevers shakes or chills, foul smelling or copious lochia, with the passage of large blood clots, with any pain not alleviated by otnb-yji-eqffisu products, or indeed with any concerns. 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 Assessment: Doing well second post operative day Patient Condition at Discharge: Good Plan - Discharge Summary Discharge Rx Participant: No New Discharge Prescriptions: No Action No Known Home Medications Discharge Medication List No Known Home Medications 05/30/21 [History] Follow up Appointment(s)/Referral(s): Cyndie Gruber MD [STAFF PHYSICIAN] - 1 Week Discharge Disposition: HOME SELF-CARE
[2022-01-06 08:42] VITALS: BP 100/64; PULSE 80
== END 2022-01-06 10:40 | disposition home or self-care (01) | DRG 785 ==
LOC: 4FBP 10:06
PROVIDERS: ADMIT Obstetrics & Gynecology; ATTEND Obstetrics & Gynecology
DX: O34.211 Maternal care for low transverse scar from previous cesarean delivery (principal); J45.909 Unspecified asthma, uncomplicated; Z28.310 Unvaccinated for COVID-19; O26.893 Other specified pregnancy related conditions, third trimester; Z67.11 Type A blood, Rh negative; N85.8 Other specified noninflammatory disorders of uterus; Z30.2 Encounter for sterilization; Z37.0 Single live birth; O99.52 Diseases of the respiratory system complicating childbirth; Z3A.39 39 weeks gestation of pregnancy; Z90.49 Acquired absence of other specified parts of digestive tract; Z87.19 Personal history of other diseases of the digestive system; Z86.59 Personal history of other mental and behavioral disorders; Z86.14 Personal history of Methicillin resistant Staphylococcus aureus infection; Z86.69 Personal history of other diseases of the nervous system and sense organs; Z98.890 Other specified postprocedural states; Z88.1 Allergy status to other antibiotic agents; Z88.2 Allergy status to sulfonamides; Z82.5 Family history of asthma and other chronic lower respiratory diseases; Z81.8 Family history of other mental and behavioral disorders; Z81.1 Family history of alcohol abuse and dependence
CPT/HCPCS: 85025; 85461; 86850; 86900; 86901

== ENCOUNTER → 2023-04-28 | Outpatient (CLI) | payer MEDICAID ==
[2023-04-28 11:01] LABS: Appearance,Urine Clear (Clear); Bilirubin,Urine Negative (Negative); Blood,Urine Negative (Negative); Color,Urine Light Yellow; Glucose,Urine (UA) Negative (Negative); Ketones,Urine Negative (Negative); Leukocyte Esterase,Urine Negative (Negative); Nitrite,Urine Negative (Negative); PH, Urine 7.5 (5.0-8.0); Protein,Urine Negative (Negative); Specific Gravity,Urine 1.016 (1.001-1.035); Urobilinogen,Urine <2.0 mg/dL (<2.0)
[2023-04-28 14:34] LABS: Basophils # (A) 0.06 X 10*3/uL (0.00-0.10); Basophils % (A) 1.1 %; Eosinophils # (A) 0.18 X 10*3/uL (0.04-0.35); Eosinophils % (A) 3.3 %; HCT 40.7 % (37.2-46.3); HGB 13.2 d/dL (12.0-15.0); Immature Grans, Automated 0 %; Lymphocytes # (A) 1.54 X 10*3/uL (0.90-5.00); Lymphocytes % (A) 28.1 %; MCH 28.5 pg (27.0-32.0); MCHC 32.4 d/dL (32.0-37.0); MCV 87.9 FL (80.0-97.0); Mean Platelet Volume 11.8 FL (9.5-12.2); Monocytes # (A) 0.43 X 10*3/uL (0.20-1.00); Monocytes % (A) 7.8 %; NRBC Per 100 WBC 0 X 10*3/uL (0.00-0.01); Neutrophils # (A) 3.28 X 10*3/uL (1.80-7.70); Neutrophils % (A) 59.7 %; Platelet Count 256 X 10*3/uL (140-440); RBC 4.63 X 10*6/uL (4.10-5.20); WBC 5.49 X 10*3/uL (4.50-10.00)
[2023-04-28 15:10] LABS: % Iron Saturation 14.18 (12.00-45.00); ALT 36 U/L (8-44); AST 36 U/L (13-35); Albumin 4.9 d/dL (3.8-4.9); Albumin/Globulin Ratio 1.48 Ratio (1.60-3.17); Alkaline Phosphatase 57 U/L (41-126); BUN/Creat Ratio 10.78 Ratio (12.00-20.00); Blood Urea Nitrogen 9.7 mg/dL (9.0-27.0); Calcium 9.6 mg/dL (8.7-10.3); Carbon Dioxide 22.4 mmol/L (21.6-31.8); Chloride 104 mmol/L (96-109); Chol/HDL Ratio 1.13 Ratio; Ferritin 13.9 ng/mL (10.0-291.0); Globulin 3.3 d/dL (1.6-3.3); Glucose 86 mg/dL (70-110); Iron 56 UG/DL (50-170); LDL Cholesterol,Calculated 6.1 mg/dL (0.0-131.0); Potassium 4.4 mmol/L (3.5-5.5); Sodium 138 mmol/L (135-145); Total Bilirubin 0.4 mg/dL (0.3-1.2); Total Iron Binding Capacity 395 UG/DL (228-460); Total Protein 8.2 d/dL (6.2-8.2); VLDL Calculation 3.92 mg/dL (5.00-40.00)
== END | disposition home or self-care (01) ==
LOC: LABWHC1 09:53
PROVIDERS: ATTEND Family Medicine
DX: Z00.00 Encounter for general adult medical examination without abnormal findings (principal)
CPT/HCPCS: 36415; 80053; 80061; 81003; 82306; 82728; 83036; 83540; 83550; 84443; 85025

== ENCOUNTER → 2023-06-06 | Outpatient (CLI) | payer MEDICAID ==
--- NOTE | 2023-06-06 10:10 | US ---
EXAMINATION TYPE: US abdomen complete DATE OF EXAM: 06/06/2023 COMPARISON: NONE CLINICAL INDICATION: Female, 27 years old with history of R10.13 EPIGASTRIC PAIN; epi pain for a few weeks, cholecystectomy TECHNIQUE: Multiple sonographic images of the abdomen are obtained. FINDINGS: EXAM MEASUREMENTS: Liver Length: 17.1 cm Gallbladder Wall: Surgically absent CBD: 0.6 cm Spleen: 10.0 cm Right Kidney: 9.2 x 4.8 x 4.7 cm Left Kidney: 10.3 x 4.7 x 5.2 cm Pancreas: wnl Liver: wnl Gallbladder: Surgically absent Evidence for sonographic Stoo's sign: no CBD: wnl Spleen: wnl Right Kidney: wnl Left Kidney: wnl Upper IVC: wnl Abd Aorta: wnl IMPRESSION: 1. Mild hepatomegaly
== END | disposition home or self-care (01) ==
LOC: RADUSWWP 06:58
PROVIDERS: ATTEND Family Medicine
DX: R10.13 Epigastric pain (principal); R16.0 Hepatomegaly, not elsewhere classified; Z90.49 Acquired absence of other specified parts of digestive tract
CPT/HCPCS: 76700

== ENCOUNTER → 2023-06-18 | Outpatient (CLI) | payer MEDICAID ==
--- NOTE | 2023-06-18 21:08 | MR ---
EXAMINATION TYPE: MR brain wo/w con DATE OF EXAM: 06/18/2023 6:35 PM CLINICAL INDICATION:Female, 27 years old with history of G43.909 MIGRAINE;Migraines, dizziness, COMPARISON: None TECHNIQUE: Multi planar, multi sequence imaging was performed through the brain including: T1, T2, In version recovery, susceptibility weighted imaging and gradient echo imaging and Diffusion weighted im aging. The patient was then given intravenous contrast and multi planar, T1 fat-saturation images wer e obtained. IV Contrast: 6.5 cc Gadavist FINDINGS: The coker-white junctions, ventricular system, basal cisterns appear unremarkable. Diffusion-weighted imaging shows no evidence of restricted diffusion to suggest acute/subacute infarct. Intracranial ar terial flow voids are maintained. Midline structures show no abnormality. The susceptibility weighted images do not reveal any evidence for micro-hemorrhage. After administration of gadolinium, no abnor mal enhancement is seen. The bone marrow signal is within normal limits. Paranasal sinuses and mastoid air cells: No significant paranasal sinus disease. Visualized orbits: Orbital contents are intact. IMPRESSION: No evidence of intracranial mass, acute/subacute infarct, or abnormal enhancement.
== END | disposition home or self-care (01) ==
LOC: RADMRIMAIN 17:08
PROVIDERS: ATTEND Family Medicine
DX: G43.909 Migraine, unspecified, not intractable, without status migrainosus (principal); R42 Dizziness and giddiness
CPT/HCPCS: 70553; A9585

== ENCOUNTER → 2024-06-12 | Outpatient (CLI) | payer MEDICAID ==
[2024-06-12 16:01] LABS: HCT 40.1 % (37.2-46.3); HGB 12.9 g/dL (12.0-15.0); MCH 27.6 pg (27.0-32.0); MCHC 32.2 g/dL (32.0-37.0); MCV 85.7 FL (80.0-97.0); Mean Platelet Volume 11.5 FL (9.5-12.2); NRBC Per 100 WBC 0 X 10*3/uL (0.00-0.01); Platelet Count 267 X 10*3/uL (140-440); RBC 4.68 X 10*6/uL (4.10-5.20); RDW 13.1 % (11.5-14.5); WBC 6.28 X 10*3/uL (4.50-10.00)
[2024-06-12 16:05] LABS: ALT 44 U/L (8-44); AST 33 U/L (13-35); Albumin 4.5 g/dL (3.8-4.9); Albumin/Globulin Ratio 1.67 Ratio (1.60-3.17); Alkaline Phosphatase 63 U/L (41-126); BUN/Creat Ratio 12.12 Ratio (12.00-20.00); Blood Urea Nitrogen 9.7 mg/dL (9.0-27.0); Calcium 9.6 mg/dL (8.7-10.3); Carbon Dioxide 26.2 mmol/L (21.6-31.8); Chloride 105 mmol/L (96-109); Globulin 2.7 g/dL (1.6-3.3); Glucose 99 mg/dL (70-110); Potassium 4.4 mmol/L (3.5-5.5); Sodium 140 mmol/L (135-145); T4, Free (Free Thyroxine) 1.13 ng/dL (0.80-1.80); Total Bilirubin 0.3 mg/dL (0.3-1.2); Total Protein 7.2 g/dL (6.2-8.2)
== END | disposition home or self-care (01) ==
LOC: LABWHC1 09:09
PROVIDERS: ATTEND Nurse Practitioner Gerontology
DX: Z00.00 Encounter for general adult medical examination without abnormal findings (principal)
CPT/HCPCS: 36415; 80053; 83735; 84439; 84443; 85027

== ENCOUNTER → 2024-06-13 | Outpatient (CLI) | payer MEDICAID ==
--- NOTE | 2024-06-15 07:22 | CA ---
Transthoracic Echo Report Name: Lynsey Aguilar Age: 28 Gender: F : 1995 Exam Date: 06/13/2024 15:58 Exam Location: [facility] Ht (in): 61 Wt (lb): 142 Ordering Physician: Wiliam Jaime DO Attending/Referring Phys: LeiKarin [facility] Pathology Technologist Stephanie Luis RDCS Procedure CPT: Indications: R55 SYNCOPE AND COLLAPSE Cardiac Hx: Technical Quality: Good Contrast 1: Total Dose (mL): Contrast 2: Total Dose (mL): MEASUREMENTS (Male / Female) Normal Values 2D ECHO LV Diastolic Diameter PLAX 4.0 cm 4.2 - 5.9 / 3.9 - 5.3 cm LV Systolic Diameter PLAX 2.5 cm IVS Diastolic Thickness 1.0 cm 0.6 - 1.0 / 0.6 - 0.9 cm LVPW Diastolic Thickness 0.9 cm 0.6 - 1.0 / 0.6 - 0.9 cm LV Relative Wall Thickness 0.5 RV Internal Dim ED PLAX 3.3 cm LVOT Diameter 1.6 cm LV Diastolic Volume MOD BP 76.5 cm??? 67 - 155 / 56 - 104 cm??? LV Systolic Volume MOD BP 30.4 cm??? 22 - 58 / 19 - 49 cm??? LV Ejection Fraction MOD BP 60.3 % >= 55 % LV Cardiac Index MOD BP 1701.2 cm???/min???m??? LV Diastolic Volume MOD 4C 70.8 cm??? LV Systolic Volume MOD 4C 30.9 cm??? LV Ejection Fraction MOD 4C 56.3 % LV Cardiac Index MOD 4C 1468.7 cm???/min???m??? LV Diastolic Length 4C 8.0 cm LV Systolic Length 4C 6.5 cm LV Diastolic Volume MOD 2C 79.3 cm??? LV Systolic Volume MOD 2C 28.2 cm??? LV Ejection Fraction MOD 2C 64.5 % LV Cardiac Index MOD 2C 1884.2 cm???/min???m??? LV Diastolic Length 2C 7.6 cm LV Systolic Length 2C 6.1 cm LA Volume 52.9 cm??? 18 - 58 / 22 - 52 cm??? LA Volume Index 31.4 cm???/m??? 16 - 28 cm???/m??? DOPPLER AV Peak Velocity 113.6 cm/s AV Peak Gradient 5.2 mmHg AV Mean Velocity 83.4 cm/s AV Mean Gradient 3.1 mmHg AV Velocity Time Integral 21.9 cm LVOT Peak Velocity 77.3 cm/s LVOT Peak Gradient 2.4 mmHg LVOT Velocity Time Integral 15.2 cm LVOT Stroke Volume 32.4 cm??? LVOT Stroke Volume Index 19.9 ml/m??? LVOT Cardiac Index 1195.6 cm???/min???m??? AV Area Cont Eq vti 1.5 cm??? AV Area Cont Eq pk 1.5 cm??? MV Area PHT 2.8 cm??? Mitral E Point Velocity 81.1 cm/s Mitral A Point Velocity 57.5 cm/s Mitral E to A Ratio 1.4 MV Deceleration Time 272.3 ms MV E' Velocity 11.5 cm/s Mitral E to MV E' Ratio 7.0 FINDINGS Left Ventricle Normal left ventricular size, mildly increased wall thickness, systolic function with no obvious regional wall motion abnormalities. Normal left ventricular diastolic filling pattern for age. The ejection fraction is visually estimated at 55-60 %. Right Ventricle The right ventricle is normal in size and function. Right Atrium Normal right atrial size. Left Atrium Left atrial size at the upper limits of normal. Mitral Valve Structurally normal mitral valve without significant stenosis or prolapse. There is no mitral regurgitation. Aortic Valve Structurally normal aortic valve without significant sclerosis or stenosis. There is no aortic regurgitation. Tricuspid Valve Structurally normal tricuspid valve without significant stenosis. Pulmonary artery systolic pressure is normal. Mild tricuspid regurgitation. Pulmonic Valve Structurally normal pulmonic valve without significant stenosis. There is no pulmonic regurgitation. Pericardium Normal pericardium without effusion. Aorta Normal aortic root dimension. CONCLUSIONS LVEF 55-60% Mild concentric LVH No obvious regional wall motion abnormality No obvious valvular dysfunction Normal RV size and systolic function Previewed by: Dr Orlin Yoder (Electronically Signed) Final Date: 15 June 2024 07:22
== END | disposition home or self-care (01) ==
LOC: RADECHMAIN 15:59
PROVIDERS: ATTEND Family Medicine
DX: R55 Syncope and collapse (principal); I07.1 Rheumatic tricuspid insufficiency
CPT/HCPCS: 93306

== ENCOUNTER → 2024-06-18 | Outpatient (CLI) | payer MEDICAID ==
--- NOTE | 2024-07-10 08:46 | EM ---
14-day event monitor shows sinus mechanism heart rates ranging from 48-150 beats a minute Average heart rates in the 80s No significant arrhythmias noted MTDD
== END | disposition home or self-care (01) ==
LOC: RADECHMAIN 07:14
PROVIDERS: ATTEND Family Medicine
DX: R55 Syncope and collapse (principal)
CPT/HCPCS: 93270